=== PATIENT | female | born 1960 | race Caucasian/White ===

== ENCOUNTER 2019-10-29 09:43 | Emergency (ER) | payer OTHER, SELFPAY ==
[2019-10-29 09:50] VITALS: BP 139/81; PULSE 107; RESP 20; TEMP 37.1; O2SAT 94
--- NOTE | 2019-10-29 10:04 | ED.URI ---
HPI - URI/Sore Throat General Chief Complaint: Upper Respiratory Infection Stated Complaint: runny nose/cough/body aches Time Seen by Provider: 10/29/19 10:12 Source: patient and RN notes reviewed Mode of arrival: ambulatory Limitations: no limitations History of Present Illness HPI Narrative: A 59 y/o female smoker presents to the with 2 day worsening 2 wk history of URI symptoms. She states that she has been sick for 2-3 weeks but over the past couple days her symptoms have gotten more severe. Her son was tested today for influenza and type A positive. She reports a severe dry cough, rhinorrhea, nasal congestion, and body aches. She notes that she has not been sleeping well d/t her cough and that nothing has helped her symptoms. She also notes that her son who is here with her has been sick for the past couple days. She denies any fevers, edema, sore throat, ear aches, sputum changes, precordial chest pain, wheezes, calf pain/edema and any other medical complaints at this time. MD elicited complaint: other (multiple) Onset (ago): week(s) (2-3 but worse over the past couple days) Consistency: progressively worsening Relieving factors: nothing Context: sick contacts (son) Associated symptoms: rhinorrhea, nasal congestion, cough (dry) and other (body aches) Related Data Home Medications Medication Instructions Recorded Confirmed amlodipine 5 mg tablet 5 mg PO DAILY 10/03/19 10/29/19 escitalopram oxalate 10 mg tablet 10 mg PO DAILY 10/03/19 10/29/19 [id number] cap PO 10/29/19 [Vicks DayQuil Cold-Flu Relief] Allergies Allergy/AdvReac Type Severity Reaction Status Date / Time No Known Allergies Allergy Unknown Verified 10/29/19 09:58 Review of Systems Review of Systems: Narrative: General/Constitutional: No weight loss,fever. Reports body aches. Eyes: N0: Redness,discharge Ears/Nose/Throat: No: Epistaxis,ear discharge, ear ache, or sore throat. Reports rhinorrhea and nasal discharge. Respiratory: Denies: Hemoptysis, edema. Reports a dry cough. Gastrointestinal: No Vomiting, Bleeding-rectal Skin: No Lumps, eruption Neurologic: No Focal Weakness,Sz Hematologic: Denies: Petechiae/Purpura Psychiatric: No: Suicida ideationl All Other Systems: Reviewed and Negative PMFSH Past Medical History Medical History (Updated 10/29/19 @ 10:21 by Dl Olmedo MD) Anxiety Depression Encounter for long-term (current) use of other medications Essential hypertension History of tobacco use Hyperlipidemia Impaired glucose tolerance Osteoporosis Overweight (04/19/17) Personal history of malignant phylloides tumor of breast Port-A-Cath in place Vitamin D deficiency (03/30/19) Surgical History Surgical History (Updated 10/29/19 @ 10:06 by Alessandro Humphrey) Surgical history unknown Family History Family History Mother Patient's mother is in good health Father Patient's father is in good health Sibling Patient's sister is in good health Patient's brother is in good health Other Family history of malignant neoplasm of breast Family history of malignant neoplasm of breast in first degree relative Social History Social History (Updated 10/29/19 @ 10:18 by Alessandro Humphrey) Smoking packs per day: 0.5 Smoking cigarettes per day: 10.0 Smoking status: Current every day smoker Second hand tobacco smoke exposure: Yes Alcohol intake: current Comments PCP: Dr. Cee. Exam Narrative: Exam Narrative: General Appearance: Well appearing, Well nourished EYE: PERRLA, Conjunctiva clear Ears: Auditory canal normal, TM normal Nose: Rhinorrhea, Mucousal erythema Mouth/Throat: MM moist, Uvula midline, Pharyngeal erythema Neck: Supple, No adenopathy Respiratory: No respiratory distress, Breath sounds equal, Clear to auscultation Cardiovascular: RRR, No JVD Musculoskeletal: Non tender, Normal strength Skin: Warm, Dry Neurological: A&O x3, CN
== END 2019-10-29 10:22 | disposition home or self-care (01) ==
PROVIDERS: Emergency Provider Emergency Medicine; PCP Internal Medicine
DX: J11.1 Influenza due to unidentified influenza virus with other respiratory manifestations (principal); F41.9 Anxiety disorder, unspecified; F32.9 Major depressive disorder, single episode, unspecified; M81.0 Age-related osteoporosis without current pathological fracture; I10 Essential (primary) hypertension; E78.5 Hyperlipidemia, unspecified
CPT/HCPCS: 99213; G0463

== ENCOUNTER 2020-12-06 09:34 | Outpatient (CLI) | payer OTHER, SELFPAY ==
[2020-12-06 11:32] LABS: Alanine Aminotransferase 15 U/L (4-35); Alkaline Phosphatase 72 U/L (38-126); Anion Gap 2 mmol/L (8-16); Aspartate Amino Transferase 27 U/L (14-36); Bilirubin,Total 0.6 mg/dL (0.2-1.3); Blood Urea Nitrogen 9 mg/dL (7-17); Calcium 9.1 mg/dL (8.4-10.2); Carbon Dioxide 32 mmol/L (22-30); Chloride 105 mmol/L (98-107); Cholesterol 187 mg/dL (0-200); Estimated Glomerular Filt Rate > 60; Glucose 97 mg/dL (65-105); HDL Direct 85 mg/dL; Potassium 3.9 mmol/L (3.4-5.0); Sodium 139 mmol/L (137-145); Triglycerides 61 mg/dL (<150)
[2020-12-06 11:44] LABS: LDL Cholesterol Direct 85 mg/dL
[2020-12-06 12:50] LABS: Vitamin D 25 Hydroxy 16.9 ng/mL
== END 2020-12-06 09:35 | disposition home or self-care (01) ==
PROVIDERS: PCP Internal Medicine; Visit Provider Internal Medicine
DX: Z00.00 Encounter for general adult medical examination without abnormal findings (principal); E78.5 Hyperlipidemia, unspecified; E55.9 Vitamin D deficiency, unspecified
CPT/HCPCS: 36415; 80053; 80061; 82306

== ENCOUNTER 2020-12-09 14:35 | Outpatient (CLI) | payer OTHER, SELFPAY ==
--- NOTE | ~2020-12-09 | DEXA_ITS ---
Bone Density Report Name: Kasey Lopez Age: 60 Sex: Female Ethnicity: White Date of : 1960 Indication: postmenopausal; cancer; Referring Provider: CHANTE SIM Study: Bone densitometry was performed. Exam Date: December 09, 2020 Accession number: [id number] Bone Density: Region BMD T-score Z-score Classification AP Spine (L1-L4) 0.906 -1.3 0.0 Osteopenia Femoral Neck (Left) 0.610 -2.1 -1.0 Osteopenia Total Hip (Left) 0.858 -0.7 0.2 Normal Total Hip Bilateral Avg 0.887 -0.4 0.4 Normal Femoral Neck (Right) 0.575 -2.5 -1.3 Osteoporosis Total Hip (Right) 0.915 -0.2 0.6 Normal World Health Organization criteria for BMD impression classify patients as: Normal (T-score at or above -1.0), Osteopenia (T-score between -1.0 and -2.5), or Osteoporosis (T-score at or below -2.5). 10-year Fracture Risk: FRAX not reported because: Some T-score for Spine Total or Hip Total or Femoral Neck at or below -2.5 Previous Exams: Region Exam Age BMD T-score BMD Change BMD Change Date g/cm2 vs Baseline vs Previous AP Spine(L1-L4) 12/09/2020 60 0.906 -1.3 -0.035(-3.7%)* -0.035(-3.7%)* 08/17/2012 51 0.941 -1.0 Total Hip(Left) 12/09/2020 60 0.858 -0.7 -0.043(-4.8%)* -0.043(-4.8%)* 08/17/2012 51 0.901 -0.3 Total Hip(Right) 12/09/2020 60 0.915 -0.2 0.024(2.7%) 0.024(2.7%) 08/17/2012 51 0.891 -0.4 *Denotes significance at 95% confidence level, LSC for AP Spine = 0.022 g/cm2, LSC for Total Hip = 0.027 g/cm2 Clinical Information Provided by Patient: Smokes Has the following medical conditions: Cancer Patient maximum height was 62.5 Menopause Age: 51 No regular weight bearing exercise Does not regularly consume dairy products Drinks caffeinated beverages Onset of menses at age 15 Number of children 2 Impression: The patient has osteoporosis, based on the Right Femoral Neck T-score. The patient has risk factors, including: smoking. The BMD for the AP Spine(L1-L4) decreased, changing by -3.7% since the last DXA exam. The BMD for the Total Hip(Left) decreased, changing by -4.8% since the last DXA exam. Discussion: INCREASED RISK OF FRACTURE. BONE DENSITY IS UNDESIRABLY LOW AT ONE OR MORE SKELETAL SITES, CONSISTENT WITH POSTMENOPAUSAL OSTEOPOROSIS. This patient's lowest T-score meets the World Health Organization's (WHO) criteria for osteoporosis at one or more sites (T-score -2.5 or below). In untreated patients, the risk of osteoporotic fracture i
== END 2020-12-09 14:36 | disposition home or self-care (01) ==
PROVIDERS: PCP Internal Medicine; Visit Provider Internal Medicine
DX: M81.0 Age-related osteoporosis without current pathological fracture (principal); M85.89 Other specified disorders of bone density and structure, multiple sites
CPT/HCPCS: 77080

== ENCOUNTER 2021-02-27 07:30 | Outpatient (CLI) | payer OTHER, SELFPAY ==
--- NOTE | ~2021-02-27 | MM_ITS ---
EXAMINATION: MM screening corey BI w fabrice HISTORY: Screening mammogram, history of left breast cancer TECHNIQUE: Craniocaudal and mediolateral oblique 3-D tomosynthesis images were obtained and synthetic 2-D images were generated. CAD analysis was submitted and interpreted. COMPARISON: 10/02/2018, 12/29/2016, 03/22/2016 BREAST PARENCHYMAL COMPOSITION: There are scattered areas of fibroglandular density. FINDINGS: Stable lumpectomy changes are noted in the left breast. There is no evidence of suspicious mass, calcification, or architectural distortion to suggest malignancy in either breast. There has be en no suspicious interval change. IMPRESSION: 1. No mammographic evidence of malignancy. 2. Recommend routine screening mammography in one year. BI-RADS Category 2: Benign finding(s). Reviewed, dictated and finalized at location A.
== END 2021-02-27 07:31 | disposition home or self-care (01) ==
LOC: ANHIMG 07:33
PROVIDERS: PCP Internal Medicine; Visit Provider Internal Medicine
DX: Z12.31 Encounter for screening mammogram for malignant neoplasm of breast (principal)
CPT/HCPCS: 77063; 77067

== ENCOUNTER 2022-01-02 08:35 | Outpatient (CLI) | payer OTHER, SELFPAY ==
[2022-01-02 09:06] LABS: Hemoglobin A1C 4.9 % (<5.7)
[2022-01-02 09:07] LABS: Alanine Aminotransferase 25 U/L (4-35); Albumin Level 4.5 g/dL (3.5-5.1); Alkaline Phosphatase 66 U/L (38-126); Anion Gap 2 mmol/L (8-16); Aspartate Amino Transferase 38 U/L (14-36); Bilirubin,Total 0.7 mg/dL (0.2-1.3); Blood Urea Nitrogen 9 mg/dL (7-17); Carbon Dioxide 31 mmol/L (22-30); Chloride 104 mmol/L (98-107); Cholesterol 230 mg/dL (0-200); Estimated Glomerular Filt Rate > 60; Glucose 99 mg/dL (65-110); HDL Direct 96 mg/dL; Potassium 4.2 mmol/L (3.4-5.0); Sodium 137 mmol/L (137-145); Triglycerides 60 mg/dL (<150)
[2022-01-02 09:18] LABS: LDL Cholesterol Direct 99 mg/dL
[2022-01-02 09:33] LABS: Vitamin D 25 Hydroxy 43.4 ng/mL
== END 2022-01-02 08:36 | disposition home or self-care (01) ==
LOC: ANHLAB 08:39
PROVIDERS: PCP Internal Medicine; Visit Provider Nurse Practitioner
DX: E78.5 Hyperlipidemia, unspecified (principal); R73.02 Impaired glucose tolerance (oral); E55.9 Vitamin D deficiency, unspecified
CPT/HCPCS: 36415; 80053; 80061; 82306; 83036

== ENCOUNTER 2022-04-08 15:48 | Outpatient (CLI) | payer OTHER, SELFPAY ==
--- NOTE | ~2022-04-08 | MM_ITS ---
EXAMINATION: MM screening corey BI w fabrice HISTORY: Screening mammogram TECHNIQUE: Craniocaudal and mediolateral oblique 3-D tomosynthesis images were obtained and synthetic 2-D images were generated. CAD analysis was submitted and interpreted. COMPARISON: 02/27/2021, 10/02/2018 bilateral screening mammogram examinations BREAST PARENCHYMAL COMPOSITION: There are scattered areas of fibroglandular density. FINDINGS: Stable postoperative changes noted in the upper inner lateral left breast including 4 surgi paty clips. There is no evidence of suspicious mass, calcification, or architectural distortion to sug gest malignancy in either breast. There has been no suspicious interval change. IMPRESSION: 1. Status post left partial mastectomy for breast cancer. No mammographic evidence of malignancy. 2. Recommend routine screening mammography in one year. BI-RADS Category 2: Benign finding(s). Reviewed, dictated and finalized at location B. IMPRESSION: 1. Status post left partial mastectomy for breast cancer. No mammographic evide nce of malignancy. 2. Recommend routine screening mammography in one year. BI-RADS Category 2: Benign finding(s).
== END 2022-04-08 15:49 | disposition home or self-care (01) ==
LOC: ANHIMG 15:49
PROVIDERS: PCP Internal Medicine; Visit Provider Internal Medicine
DX: Z12.31 Encounter for screening mammogram for malignant neoplasm of breast (principal)
CPT/HCPCS: 77063; 77067

== ENCOUNTER 2023-01-03 06:00 | Outpatient (CLI) | payer OTHER, SELFPAY ==
[2023-01-03 08:20] LABS: Cholesterol 245 mg/dL (0-200); Triglycerides 134 mg/dL (<150)
[2023-01-03 08:29] LABS: LDL Cholesterol Direct 100 mg/dL
[2023-01-03 09:13] LABS: HDL Direct 117 mg/dL
== END 2023-01-03 06:01 | disposition home or self-care (01) ==
PROVIDERS: Nurse Practitioner; PCP Family Medicine; Visit Provider Family Medicine
DX: E78.5 Hyperlipidemia, unspecified (principal)
CPT/HCPCS: 36415; 80061

== ENCOUNTER 2023-12-28 07:13 | Outpatient (CLI) | payer OTHER, SELFPAY ==
[2023-12-28 07:51] LABS: Basophils Absolute Auto 0.1 K/mm3 (0.0-0.1); Basophils Percent Auto 0.8 % (0.2-1.2); Eosinophils Absolute Auto 0.1 K/mm3 (0-0.3); Eosinophils Percent Auto 1.4 % (0-4.4); Hematocrit 43.2 % (37.0-47.0); Hemoglobin 14.3 g/dL (12.0-15.0); Immature Granulocyte Absolute 0.03 K/mm3 (0.00-0.031); Immature Granulocyte Percent A 0.5 % (0-0.5); Lymphocytes Absolute Auto 1.62 K/mm3 (0.9-3.2); Lymphocytes Percent Auto 25.1 % (18.3-44.2); Mean Corpuscular HGB Conc 33.1 g/dl (32-36); Mean Corpuscular Hemoglobin 33.7 pg (26-34); Mean Corpuscular Volume 101.9 fl (80-100); Monocytes Absolute Auto 0.6 K/mm3 (0.1-0.6); Monocytes Percent Auto 8.7 % (2.6-8.5); Neutrophils Absolute Auto 4.1 K/mm3 (1.3-6.7); Neutrophils Percent Auto 63.5 % (45.5-73.1); Platelet Count Result 405 k/mm3 (150-375); Red Blood Count 4.24 M/mm3 (4.2-5.4); Red Cell Distribution Width 13.3 % (11.5-14.5); White Blood Count 6.5 K/mm3 (4.5-10.0)
[2023-12-28 07:58] LABS: Alanine Aminotransferase 34 U/L (6-35); Albumin Level 4.6 g/dL (3.5-5.1); Alkaline Phosphatase 66 U/L (38-126); Anion Gap 8 mmol/L (4-12); Aspartate Amino Transferase 35 U/L (14-36); Bilirubin,Total 0.5 mg/dL (0.2-1.3); Blood Urea Nitrogen 12 mg/dL (7-17); Calcium 10.2 mg/dL (8.4-10.2); Carbon Dioxide 27 mmol/L (22-30); Chloride 105 mmol/L (98-107); Cholesterol 229 mg/dL (0-200); Estimated Glomerular Filt Rate > 60; Glucose 92 mg/dL (65-110); HDL Direct 106 mg/dL; Potassium 4.3 mmol/L (3.4-5.0); Sodium 140 mmol/L (137-145); Triglycerides 242 mg/dL (<150)
[2023-12-28 08:09] LABS: LDL Cholesterol Direct 92 mg/dL
[2023-12-28 08:49] LABS: Vitamin D 25 Hydroxy 61.9 ng/mL
[2023-12-28 09:03] LABS: Folic Acid > 20.0 ng/mL (2.76->20)
== END 2023-12-28 07:14 | disposition home or self-care (01) ==
PROVIDERS: PCP Family Medicine; Visit Provider Nurse Practitioner Family
DX: E78.5 Hyperlipidemia, unspecified (principal); E55.9 Vitamin D deficiency, unspecified; F41.9 Anxiety disorder, unspecified; G47.00 Insomnia, unspecified; I10 Essential (primary) hypertension; M81.0 Age-related osteoporosis without current pathological fracture; R73.02 Impaired glucose tolerance (oral); Z87.891 Personal history of nicotine dependence
CPT/HCPCS: 36415; 80053; 80061; 82306; 82607; 82746; 83036; 84439; 84443; 85025

== ENCOUNTER 2024-03-05 07:53 | Outpatient (CLI) | payer OTHER, SELFPAY ==
--- NOTE | ~2024-03-05 | MM_ITS ---
EXAMINATION: MM screening corey BI w fabrice HISTORY: Screening mammogram TECHNIQUE: Craniocaudal and mediolateral oblique 3-D tomosynthesis images were obtained and synthetic 2-D images were generated. CAD analysis was submitted and interpreted. COMPARISON: 04/08/2022, 02/27/2021, 10/02/2018 BREAST PARENCHYMAL COMPOSITION:Not Dense. There are scattered areas of fibroglandular density. FINDINGS: Stable postoperative change and distortion in the left breast. No suspicious mass, calcific ation, or new architectural distortion are identified in either breast to suggest malignancy. There h as been no suspicious interval change. IMPRESSION: No mammographic evidence of malignancy. Recommend routine screening mammography in one year. BI-RADS Category 2: Benign finding(s). Reviewed, dictated and finalized at [facility] [place].
--- NOTE | ~2024-03-05 | DEXA_ITS ---
Bone Density Report Name: HALINA HILLMAN Age: 63 Sex: Female Ethnicity: White Date of : 1960 Indication: postmenopausal; screening for osteoporosis; height loss; cancer; Referring Provider: WILLY TESFAYE Study: Bone densitometry was performed. Exam Date: March 05, 2024 Accession number: [id number] Bone Density: Region BMD T-score Z-score Classification AP Spine(L1-L4) 0.924 -1.1 0.4 Osteopenia Femoral Neck (Left) 0.680 -1.5 -0.2 Osteopenia Total Hip (Left) 0.925 -0.1 0.9 Normal Femoral Neck (Right) 0.619 -2.1 -0.7 Osteopenia Total Hip (Right) 0.932 -0.1 0.9 Normal Total Hip Mean 0.929 -0.1 0.9 Normal World Health Organization criteria for BMD impression classify patients as: Normal (T-score at or above -1.0), Osteopenia (T-score between -1.0 and -2.5), or Osteoporosis (T-score at or below -2.5). 10-year Fracture Risk(1): Major Osteoporotic Fracture 10% Hip Fracture 2.2% Reported Risk Factors: [place] (), Neck BMD=0.619, BMI=29.7, smoking (1) FRAX(R) Version 3.08. Fracture probability calculated for an untreated patient. Fracture probability may be lower if the patient has received treatment. Clinical Information Provided by Patient: Smokes Has used the following medications: Vitamin D, Calcium Has the following medical conditions: Cancer Patient maximum height was 62.5 Menopause Age: 51 No regular weight bearing exercise Drinks caffeinated beverages Onset of menses at age 16 Number of children 2 Impression: The patient has low bone mass, based on the Right Femoral Neck T-score. The patient has an estimated ten-year risk of hip fracture of 2.2% and an estimated ten-year risk of major fracture of 10%, based on the WHO FRAX algorithm. The patient has risk factors, including: smoking. Discussion: BONE DENSITY IS LOW AT ONE OR MORE SKELETAL SITES. This patient's lowest T-score is low at one or more skeletal sites. It meets the World Health Organization's (WHO) criteria for ?low bone mass? (T-score between -1.0 and -2.5). The patient's 10-year risk of fracture as calculated by FRAX is less than the threshold where pharmacological therapy is recommended by the National Osteoporosis Foundation (NOF). However, all treatment decisions require clinical judgment and consideration of individual patient factors, including patient preferences, comorbidities, previous drug use, risk factors not captured in the FRAX model (e.g., frailty, falls, vitamin D deficiency, increased bone turnover, interval significant decline in bone density) and possible under or overestimation of fracture risk by FRAX. The patient should follow a healthful lifestyle (good nutrition with adequate calcium and vitamin D, and appropriate weight-bearing exercise). Follow-Up: Consider repeating this
== END 2024-03-05 07:54 | disposition home or self-care (01) ==
PROVIDERS: PCP Family Medicine; Visit Provider Nurse Practitioner Family
DX: Z12.31 Encounter for screening mammogram for malignant neoplasm of breast (principal); M85.89 Other specified disorders of bone density and structure, multiple sites; Z85.3 Personal history of malignant neoplasm of breast; Z13.820 Encounter for screening for osteoporosis
CPT/HCPCS: 77063; 77067; 77080

== ENCOUNTER 2024-05-29 13:37 | Emergency (ER) | payer OTHER, SELFPAY ==
[2024-05-29 13:51] VITALS: BP 135/88; PULSE 101; RESP 16; TEMP 36.3; O2SAT 98
[2024-05-29 14:07] LABS: EDCOVIDSCREEN Positive (Negative); EDINFLUASCREEN Negative (Negative); EDINFLUBSCREEN Negative (Negative)
--- NOTE | 2024-05-29 20:48 | ED.URI ---
HPI - URI/Sore Throat General Chief Complaint: Upper Respiratory Infection Stated Complaint: RUNNY NOSE/SORE THROAT/COUGH Time Seen by Provider: 05/29/24 13:58 Source: patient, RN notes reviewed and old records reviewed Mode of arrival: ambulatory Limitations: no limitations History of Present Illness HPI Narrative: 63-year-old female to [facility] with complaint of runny nose, body aches, sore throat, sneezing, fatigue since Tuesday. Patient reports treating at home with NyQuil and Tylenol with little relief. Patient denies fever, shortness of breath, chest pain, difficulty swallowing, cough, ear pain, GI complaints. Patient able tolerate fluids by mouth. Patient resting uncomfortably, appears acutely ill in exam room. Respirations even and nonlabored. Patient in no acute distress. Related Data Home Medications Medication Instructions Recorded Confirmed multivitamin 1 tablet PO DAILY 05/18/23 05/18/23 Allergies Allergy/AdvReac Type Severity Reaction Status Date / Time No Known Allergies Allergy Unknown Verified 11/29/23 07:46 Review of Systems Review of Systems: All systems reviewed & are unremarkable except as noted in HPI and below Constitutional: Constitutional: Reports as per HPI, Reports body ache(s), Reports fatigue and Reports lethargy Eyes: Eyes: Reports no additional eye complaints ENT: Reports as per HPI, Reports nasal discharge, Reports sore throat and Reports other ( Sneezing) Cardiovascular: Cardiovascular: Reports no additional cardiovascular complaints, Denies chest pain and Denies dyspnea Respiratory: Respiratory: Reports no additional respiratory complaints, Denies cough and Denies dyspnea Musculoskeletal: Musculoskeletal: Reports no additional musculoskeletal complaints Neurologic: Reports system reviewed and no additional complaints, except as documented Psychiatric: Psychiatric: Reports no additional psychiatric complaints [facility] Past Medical History Medical History Anxiety Depression Encounter for long-term (current) use of other medications Essential hypertension History of tobacco use Hyperlipidemia Impaired glucose tolerance Osteoporosis Overweight (04/19/17) Personal history of malignant phylloides tumor of breast Port-A-Cath in place Vitamin D deficiency (03/30/19) Surgical History Surgical History History of removal of Port-a-Cath History of subtotal mastectomy of left breast Surgical history unknown Family History Family History Mother Patient's mother is in good health Father Patient's father is in good health Sibling Patient's sister is in good health Patient's brother is in good health Other Family history of malignant neoplasm of breast Family history of malignant neoplasm of breast in first degree relative Social History Social History Smoking packs per day: 1 Smoking cigarettes per day: 20.0 Years smoked: 30 Smoking pack-years: 30.00 Smoking status: Former smoker Tobacco type: cigarettes Second hand tobacco smoke exposure: Yes Smoking end date: 07/27/22 Alcohol intake: current Drinks per week: 4 Substance use: former Substance use type: marijuana Lack of Transportation: No Lack of Food: Sometimes True Current Housing: I Have Housing Concerned About Future Housing: No Difficulty Paying Gas/Electric Bills: No Difficulty Paying for Meds: No Currently Unemployed: No Education: Master's Degree or Higher Difficulty w/ Childcare or Family Care: No Comments At the time of my signature, I reviewed and agree with the nursing past medical, surgical, social, and family history. There is no relevant family history pertinent to the patient complaint. Exam Const: General
== END 2024-05-29 14:16 | disposition home or self-care (01) ==
PROVIDERS: Emergency Provider Nurse Practitioner Family; PCP Nurse Practitioner Family
DX: U07.1 COVID-19 (principal); F41.8 Other specified anxiety disorders; I10 Essential (primary) hypertension; E78.5 Hyperlipidemia, unspecified; M81.0 Age-related osteoporosis without current pathological fracture; E55.9 Vitamin D deficiency, unspecified; Z87.891 Personal history of nicotine dependence
CPT/HCPCS: 87635; 87804; 99213; G0463

== ENCOUNTER 2025-02-12 09:22 | Outpatient (CLI) | payer OTHER, SELFPAY ==
--- OUTSIDE RECORDS SUMMARY | 2025-02-12 09:39 | XMS_ITS | Encounter Summary ---
Author Organization [facility] Address [address] [place] [address] Care Team Providers Care Inside Meter Tester Name Role Phone Linda Stone MD Primary Care Provider [phone] Encounter Details Date Type Department Care Team (Latest Contact Info) Description 04/07/2005 Outpatient Historical [facility] OTNY Morel, MD Rg [id number] [place] [address] GEN CONVUL EPI W/O MENTN INTRACT (CMS/HCC) (Primary Dx) Social History Tobacco Use Types Packs/Day Years Used Date Smoking Tobacco: Never Assessed Comments Unknown Sex and Gender Information Value Date Recorded Sex Assigned at Not on file Legal Sex 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[employer] Gender Identity Not on file Sexual Orientation Not on file documented as of this encounter Plan of Treatment Not on file documented as of this encounter Procedures Procedure Name Priority Date/Time Associated Diagnosis Comments CBC WITH DIFFERENTIAL Routine 04/07/2005 10:22 AM CDT CBC WITH DIFFERENTIAL Routine 04/07/2005 10:22 AM CDT PHENYTOIN LEVEL, TOTAL Routine 5 10:22 AM CDT COMPREHENSIVE METABOLIC PANEL Routine 04/07/2005 10:22 AM CDT documented in this encounter Results * (ABNORMAL) CBC WITH DIFFERENTIAL (04/07/2005 10:22 AM CDT) NEUTROPHILS 71(H) 45 - 70 % INTERFAC E SYSTEM LYMPHOCYTES 20 16 - 45 % INTERFAC E SYSTEM MONOCYTES 7 3 - 13 % INTERFACE SYSTEM EOSINOPHILS 1 0 - 7 % INTERFAC E SYSTEM BASOPHILS 0 0 - 2 % INTERFACE SYSTEM NEUTROPHIL ABSOLUTE 7.94(H) 1.90 - 7.00 K/uL INTERFACE SYSTEM LYMPHOCYTE ABSOLUTE 2.24 0.70 - 4.50 K/uL INTERFACE SYSTEM MONOCYTE ABSOLUTE 0.80 0.10 - 1.30 K/uL INTERFACE SYSTEM EOSINOPHIL ABSOLUTE 0.15 0.00 - 0.70 K/uL INTERFACE SYSTEM BASOPHILS ABSOLUTE 0.02 0.00 - 0.20 K/uL INTERFACE SYSTEM 04/07/2005 10:2 2 AM CDT Rg Morel MD HEMATOLOGY ORDERABLES Final Resu lt Performing Organization Address City/[facility] Co de Phone Number INTERFACE SYSTEM Refer to clinic/hospital department * (ABNORMAL) CBC WITH DIFFERENTIAL (04/07/2005 10:22 AM CDT) WBC 11.2(H) 4.0 - 9.8 K/uL INTERFACE SYSTEM RBC 4.59 3.90 - 4.90 M/uL INTERFACE SYSTEM HEMOGLOBIN 15.3(H) 11.8 - 14.8 g/dL INTERFACE SYSTEM HEMATOCRIT 45.8(H) 35.5 - 44.0 % INTERFACE SYSTEM MCV 99.8(H) 82.0 - 99.0 fL INTERFACE SYSTEM MCH 33.3(H) 27.2 - 32.6 pg INTERFACE SYSTEM MCHC 33.4 31.5 - 35.5 % INTERFACE SYSTEM RDW 13.2 11.5 - 14.5 % INTERFACE SYSTEM RDW-STDEV 48.7 37.1 - 48.7 fL INTERFACE SYSTEM PLATELETS 365(H) 140 - 350 K/uL INTERFACE SYSTEM MPV 9.5 9.3 - 12.4 fL INTERFACE SYSTEM 04/07/2005 10:2 2 AM CDT Rg Morel MD HEMATOLOGY ORDERABLES Final Resu lt INTERFACE SYSTEM Refer to clinic/hospital department * (ABNORMAL) PHENYTOIN LEVEL, TOTAL (04/07/2005 10:22 AM CDT) PHENYTOIN TOTAL 22.6(H) 10.0 - 20.0 ug/mL INTERFACE SYSTEM Comment: Phenytoin Toxic Level >= 30 ug/mL Phenytoin Severely Toxic Level >= 40 ug/mL 04/07/2005 10:2 2 AM CDT Rg Morel MD CHEMISTRY ORDERABLES Final Resul t Performing Organization Address City/State/[facility] Co de Phone Number INTERFACE SYSTEM Refer to clinic/hospital department * (ABNORMAL) COMPREHENSIVE METABOLIC PANEL (04/07/2005 10:22 AM CDT) GLUCOSE 108 65 - 109 mg/dL INTERFACE SYSTEM CREATININE 0.7 0.4 - 1.2 mg/dL INTERFACE SYSTEM CALCIUM 9.3 8.6 - 10.2 mg/dL INTERFACE SYSTEM AST 69(H) 12 - 32 U/L INTERFACE SYSTEM ALKALINE PHOSPHATASE 144(H) 35 - 104 U/L INTERFACE SYSTEM BUN 7 6 - 20 mg/dL INTERFACE SYSTEM BILIRUBIN TOTAL 0.4 0.2 - 1.0 mg/dL INTERFACE SYSTEM ALBUMIN 4.3 3.4 - 4.8 g/dL INTERFACE SYSTEM TOTAL PROTEIN 6.7 6.3 - 8.6 g/dL INTERFACE SYSTEM ALT 105(H) 0 - 31 U/L INTERFACE SYSTEM SODIUM 139 135 - 145 mmol/L INTERFACE SYSTEM POTASSIUM 3.9 3.5 - 4.9 mmol/L INTERFACE SYSTEM CHLORIDE 104 96 - 108 mmol/L INTERFACE SYSTEM CO2 25 22 - 30 mmol/L INTERFACE SYSTEM 04/07/2005 10:2 2 AM CDT us Rg Morel MD CHEMISTRY ORDERABLES Final Resul t Performing Organization Address City/State/[facility] Co de Phone Number INTERFACE SYSTEM Refer to clinic/hospital department documented in this encounter Visit Diagnoses Diagnosis 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
--- OUTSIDE RECORDS SUMMARY | 2025-02-12 09:39 | XMS_ITS | Encounter Summary ---
Author Organization [facility] Address [address] [place] [address] Care Team Providers Care Burglar Alarm Inspector Name Role Phone Linda Stone MD Primary Care Provider [phone] Encounter Details Date Type Department Care Team (Late st Contact Info) Description 02/24/2004 Outpatient Historical [facility] - [facility] [address] [place] [address] Giovanni Silva MD [address] [place] [address] Social History Tobacco Use Types Packs/Day Years Used Date Smoking Tobacco: Never Assessed Comments Unknown Sex and Gender Information Value Date Recorded Sex Assigned at Not on file 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
--- OUTSIDE RECORDS SUMMARY | 2025-02-12 09:39 | XMS_ITS | Encounter Summary ---
Author Organization [facility] Address [address] [place] [address] Care Team Providers Care Crt Name Role Phone Linda Stone MD Primary Care Provider [phone] Encounter Details Date Type Department Care Team (Late st Contact Info) Description 2006 Orders Only [facility] Primary Care - [address] [place] [address] Giovanni Silva MD [address] [facility] [place] [address] [place] [address] Social History Tobacco Use Types Packs/Day Years Used Date Smoking Tobacco: Never Assessed Comments Unknown Sex and Gender Information Value Date Recorded Sex Assigned at Not on file Legal Sex Female 5:19 AM DRAWING IN HAND Gender Identity Not on file Sexual Orientation Not on file documented as of this encounter Progress Notes * Giovanni Silva MD - 02/06/2008 2:49 PM CDT BLOOD PRESSURE: 120/80 Left Arm Sitting TEMPERATURE: 98.4??f Oral WEIGHT: 118lbs NURSE NAME: Gabriela Grier A ALLERGIES: No known drug allergies. MEDICATIONS: Medications may have changed. Dr to review medications. CHIEF COMPLAINT Here for follow up evaluation. HISTORY: HISTORY: 787.91-DIARRHEA The patient's diarrhea symptoms remain stable. The patient denies any significant abdominal pain, nausea, vomiting, indigestion or bloating. PHYSICAL EXAMINATION: CONSTITUTIONAL: GENERAL APPEARANCE: Healthy appearing patient in no distress. NECK/THYROID: Trachea midline. No thyroid enlargement, tenderness, or mass. No supraclavicular or cervical adenopathy. RESPIRATORY: Clear to auscultation and percussion. Normal respiratory effort. CARDIOVASCULAR: CARDIAC: Regular rhythm. No murmurs, rubs, or gallops. ARTERIAL: No aortic bruits. EDEMA/VARICOSITIES OF EXTREMITIES: No edema or varicosities. GASTROINTESTINAL: ABDOMEN: Soft, non-tender, without masses. Bowel sounds active. LIVER/SPLEEN/KIDNEY: No hepatosplenomegaly, tenderness or nodularity. Kidneys not palpable. ASSESSMENT/PLAN: 311-DEPRESSION ASSESSMENT: The patient's depression remains stable. Will not change medication, continue to monitor for complications. MEDICATIONS: CYMBALTA ORAL CAPSULE ENTERIC COATED 60 MG, 1 tab po qday, 90 Dispensed, 3 Fills, status: CONTINUED, 2006. FOLBIC ORAL TABLET 2.5-25-2 MG, 1 tab po qday, 90 Dispensed, 3 Fills, status: NEW PRESCRIPTION, 2006. 787.91-DIARRHEA ASSESSMENT: The patient's diarrhea continues to remain stable. Will not change medication, continueto monitor for complications. Electronically Signed by: Giovanni Silva MD on Thursday, 2006 documented in this encounter Plan of Treatment Not on file documented as of this encounter Visit Diagnoses Not on filedocumented in this encounter Care Teams Crt Relationship Specialty Start Date End Date Linda Stone MD [address] [facility] [address] [place] [address] PCP - General Internal Medicine 04/02/11 documented as of this encounter
--- OUTSIDE RECORDS SUMMARY | 2025-02-12 09:39 | XMS_ITS | Encounter Summary ---
Author Organization [facility] Address [address] [place] [address] Care Team Providers Care Puppy Walker Name Role Phone Linda Stone MD Primary Care Provider [phone] Encounter Details Date Type Department Care Team (Latest Contact Info) Description 06/15/2007 Outpatient Historical HIS [facility] TONY Morel, MD Rg [address] [facility] [address] [place] [address] Grand Mal, not Intractabl ([facility]) (Primary Dx) Social History Tobacco Use Types Packs/Day Years Used Date Smoking Tobacco: Never Assessed Comments Unknown Sex and Gender Information Value Date Recorded Sex Assigned at Not on file Legal Sex Female 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 Gender Identity Not on file Sexual Orientation Not on file documented as of this encounter Plan of Treatment Not on file documented as of this encounter Procedures Procedure Name Priority Date/Time Associated Diagnosis Comments PROLACTIN Routine 06/15/2007 1:28 PM CDT LIPID PANEL Routine 06/15/2007 1:28 PM CDT COMPREHENSIVE METABOLIC PANEL Routine 06/15/2007 1:28 PM CDT documented in this encounter Results * PROLACTIN (06/15/2007 1:28 PM CDT) PROLACTIN 11.04 4.79 - 23.30 ng/mL INTERFACE SYSTEM Comment: Female: Non- Reference Range 18 years - Adult = 4.79 - 23.30 ng/mL No Reference Range Established for patients less than 18 years of age..b r.br 06/15/2007 1:28 PM CDT Rg Morel MD CHEMISTRY ORDERABLES Edited Performing Organization Address [facility] Phone Number INTERFACE SYSTEM Refer to clinic/hospital department * (ABNORMAL) LIPID PANEL (06/15/2007 1:28 PM CDT) CHOLESTEROL 227(H) 100 - 199 mg/dL INTERFACE SYSTEM TRIGLYCERIDE 154(H) 10 - 149 mg/dL INTERFACE SYSTEM HDL 116(H) 40 - 59 mg/dL INTERFACE SYSTEM CHOL/HDL RATIO 2.0 2.0 - 5.0 INTER FACE SYSTEM LDL CALCULATED 80 <=99 mg/dL INTERFACE SYSTEM LIPID PANEL COMMENT See Below INTERFACE SYSTEM Comment: The adult ATP and pediatric NCEP classifications for lipids are available on the [facility] Intranet at: [email or web address] Select: Lab Policies and Procedures,Current Select: Lipid Panel Interpretation 06/15/2007 1:28 PM CDT Rg Morel MD CHEMISTRY ORDERABLES Edited Performing Organization Address [facility] Phone Number INTERFACE SYSTEM Refer to clinic/hospital department * (ABNORMAL) COMPREHENSIVE METABOLIC PANEL (06/15/2007 1:28 PM CDT) GLUCOSE 112(H) 65 - 99 mg/dL INTERFACE SYSTEM CREATININE 0.74 0.51 - 0.95 mg/dL INTERFACE SYSTEM CALCIUM 8.8 8.4 - 10.2 mg/dL INTERFACE SYSTEM ALKALINE PHOSPHATASE 70 35 - 104 U/L INTERFACE SYSTEM AST 40(H) 12 - 32 U/L INTERFACE SYSTEM ALT 38(H) 0 - 31 U/L INTERFACE SYSTEM TOTAL PROTEIN 6.4 6.3 - 8.6 g/dL INTERFACE SYSTEM ALBUMIN 4.3 3.4 - 4.8 g/dL INTERFACE SYSTEM BILIRUBIN TOTAL 0.2 0.2 - 1.0 mg/dL INTERFACE SYSTEM BUN 8 6 - 20 mg/dL INTERFACE SYSTEM SODIUM 136 135 - 145 mmol/L INTERFACE SYSTEM POTASSIUM 3.7 3.5 - 4.9 mmol/L INTERFACE SYSTEM CHLORIDE 102 96 - 108 mmol/L INTERFACE SYSTEM CO2 22 22 - 30 mmol/L INTERFACE SYSTEM GFR, >60 >=60 mL/min/1. 7 sq meter INTERFACE SYSTEM GFR >60 >=60 mL/min/1. 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
--- OUTSIDE RECORDS SUMMARY | 2025-02-12 09:39 | XMS_ITS | Encounter Summary ---
Author Organization [email or web address] Address 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
--- OUTSIDE RECORDS SUMMARY | 2025-02-12 09:39 | XMS_ITS | Encounter Summary ---
Author Organization [facility] Address [address] [place] [address] Care Team Providers Care Violin Tutor Name Role Phone Linda Stone MD Primary Care Provider [phone] Encounter Details Date Type Department Care Team (Late st Contact Info) Description 04/07/2005 Outpatient Historical Division of Neurology [address] [address] Rg Morel MD [address] [place] [address] Social History Tobacco Use Types Packs/Day Years Used Date Smoking Tobacco: Never Assessed Comments Unknown Sex and Gender Information Value Date Recorded Sex Assigned at Not on file Legal Sex Female 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
--- OUTSIDE RECORDS SUMMARY | 2025-02-12 09:39 | XMS_ITS | Encounter Summary ---
Author Organization [facility] Address [address] [place] [address] Care Team Providers Care Frame Pulley Mortising Machine Operator Name Role Phone Linda Stone MD Primary Care Provider [phone] Encounter Details Date Type Department Care Team (Late st Contact Info) Description 10/30/2003 Outpatient Historical [facility] Primary Care - [facility] [address] [facility] [address] [place] [address] Brayden Muñoz Social History Tobacco Use Types Packs/Day Years Used Date Smoking Tobacco: Never Assessed Comments Unknown Sex and Gender Information Value Date Recorded Sex Assigned at Not on file Legal Sex Female 5:19 AM CAREER DEVELOPMENT COUNSELOR Gender Identity Not on file Sexual Orientation Not on file documented as of this encounter Plan of Treatment Not on file documented as of this encounter Visit Diagnoses Not on filedocumented in this encounter Care Teams Frame Pulley Mortising Machine Operator Relationship Specialty Start Date End Date Linda Stone MD [address] [facility] [address] [place] [address] PCP - General Internal Medicine 04/02/11 documented as of this encounter
--- OUTSIDE RECORDS SUMMARY | 2025-02-12 09:39 | XMS_ITS | Encounter Summary ---
Author Organization [facility] Address [address] [place] [address] Care Team Providers Care Cadet Deck Name Role Phone Linda Stone MD Primary Care Provider [phone] Encounter Details Date Type Department Care Team (Late st Contact Info) Description 05/04/2005 Outpatient Historical [facility] Support Services [facility] [address] [place] [address] [place] [address] Jonah Floyd MD [address] [place] [address] Social History Tobacco Use Types Packs/Day Years Used Date Smoking Tobacco: Never Assessed Comments Unknown Sex and Gender Information Value Date Recorded Sex Assigned at Not on file Legal Sex Female 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
--- OUTSIDE RECORDS SUMMARY | 2025-02-12 09:39 | XMS_ITS | Encounter Summary ---
Author Organization [facility] Address [address] [place] [address] Care Team Providers Care Used Car Manager Name Role Phone Linda Stone MD Primary Care Provider [phone] Encounter Details Date Type Department Care Team (Late st Contact Info) Description 10/04/2005 Outpatient Historical Division of Neurology [address] [address] Rg Morel MD [address] [place] [address] Social History Tobacco Use Types Packs/Day Years Used Date Smoking Tobacco: Never Assessed Comments Unknown Sex and Gender Information Value Date Recorded Sex Assigned at Not on file Legal Sex Female 5:19 AM PLATE GAUGER Gender Identity Not on file Sexual Orientation Not on file documented as of this encounter Plan of Treatment Not on file documented as of this encounter Visit Diagnoses Not on filedocumented in this encounter Care Teams Used Car Manager Relationship Specialty Start Date End Date Linda Stone MD [address] [place] [address] PCP - General Internal Medicine 04/02/11 documented as of this encounter
--- OUTSIDE RECORDS SUMMARY | 2025-02-12 09:39 | XMS_ITS | Encounter Summary ---
Author Organization [facility] Address [address] [place] [address] Care Team Providers Care Inventory Control Supervisor Name Role Phone Linda Stone MD Primary Care Provider [phone] Encounter Details Date Type Department Care Team (Late st Contact Info) Description 05/30/2003 Outpatient Historical [facility] Primary Care - [facility] [address] [facility] [address] [place] [address] Brayden Muñoz Social History Tobacco Use Types Packs/Day Years Used Date Smoking Tobacco: Never Assessed Comments Unknown Sex and Gender Information Value Date Recorded Sex Assigned at Not on file Legal Sex Female 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
--- OUTSIDE RECORDS SUMMARY | 2025-02-12 09:39 | XMS_ITS | Encounter Summary ---
Author Organization [facility] Address [address] [place] [address] Care Team Providers Care Workers Compensation Attorney Name Role Phone Linda Stone MD Primary Care Provider [phone] Encounter Details Date Type Department Care Team (Late st Contact Info) Description 08/26/2003 Outpatient Historical [facility] Primary Care - [facility] [address] [facility] [address] [place] [address] Brayden Muñoz Social History Tobacco Use Types Packs/Day Years Used Date Smoking Tobacco: Never Assessed Comments Unknown Sex and Gender Information Value Date Recorded Sex Assigned at Not on file 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
--- OUTSIDE RECORDS SUMMARY | 2025-02-12 09:39 | XMS_ITS | Encounter Summary ---
Author Organization [facility] Address 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
--- OUTSIDE RECORDS SUMMARY | 2025-02-12 09:39 | XMS_ITS | Encounter Summary ---
Author Organization [facility] Address [address] [place] [address] Care Team Providers Care Mineralogy Teacher Name Role Phone Linda Stone MD Primary Care Provider [phone] Encounter Details Date Type Department Care Team (Late st Contact Info) Description 08/24/2004 Outpatient Historical [facility] Primary Care - [facility] [address] [place] [address] Giovanni Silva MD [address] [facility] [address] [place], [place] [address] Social History Tobacco Use Types Packs/Day Years Used Date Smoking Tobacco: Never Assessed Comments Unknown Sex and Gender Information Value Date Recorded Sex Assigned at Not on file Legal Sex Female 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
--- OUTSIDE RECORDS SUMMARY | 2025-02-12 09:39 | XMS_ITS | Encounter Summary ---
Author Organization [facility] Address [address] [place] [address] Care Team Providers Care Electronics Test Engineer Name Role Phone Linda Stone MD Primary Care Provider [phone] Encounter Details Date Type Department Care Team (Late st Contact Info) Description 03/10/2005 Outpatient Historical [facility] Primary Care - [facility] [address] [facility] [address] [place] [address] Giovanni Silva MD [address] [facility] [address] [address] [place] [address] Social History Tobacco Use Types Packs/Day Years Used Date Smoking Tobacco: Never Assessed Comments Unknown Sex and Gender Information Value Date Recorded Sex Assigned at Not on file Legal Sex Female 5:19 AM NIGHT CLUB MANAGER Gender Identity Not on file Sexual Orientation Not on file documented as of this encounter Plan of Treatment Not on file documented as of this encounter Visit Diagnoses Not on filedocumented in this encounter Care Teams Electronics Test Engineer Relationship Specialty Start Date End Date Linda Stone MD [address] [facility] [address] [place] [address] PCP - General Internal Medicine 04/02/11 documented as of this encounter
--- OUTSIDE RECORDS SUMMARY | 2025-02-12 09:39 | XMS_ITS | Encounter Summary ---
Author Organization [facility] Address [address] [place] [address] Care Team Providers Care Brazer Electronic Name Role Phone Linda Stone MD Primary Care Provider [phone] Encounter Details Date Type Department Care Team (Latest Contact Info) Description 06/28/2005 Outpatient Historical [facility] TONY Morel, MD Rg [address] [place] [address] GEN CONVUL EPI W/O MENTN INTRACT ([facility]) (Primary Dx) Social History Tobacco Use Types Packs/Day Years Used Date Smoking Tobacco: Never Assessed Comments Unknown Sex and Gender Information Value Date Recorded Sex Assigned at Not on file Legal Sex Female 5:19 AM CABLE RIGGER Gender Identity Not on file Sexual Orientation Not on file documented as of this encounter Plan of Treatment Not on file documented as of this encounter Procedures Procedure Name Priority Date/Time Associated Diagnosis Comments METHYLMALONIC ACID Routine 06/28/2005 9: 25 AM CDT HOMOCYSTEINE NUTRITIONAL Routine 06/28/2005 9:25 AM CDT VITAMIN B1 LEVEL Routine 06/28/2005 9:25 AM CDT FOLATE RBC AND HEMATOCRIT Routine 06/28/2005 9:25 AM CDT VITAMIN B12 LEVEL Routine 06/28/2005 9:2 5 AM CDT PHENYTOIN LEVEL, TOTAL Routine 5 9:25 AM CDT LIPID PANEL Routine 06/28/2005 9:25 AM CDT documented in this encounter Results * METHYLMALONIC ACID (06/28/2005 9:25 AM CDT) METHYLMALONIC ACID 127 nmol/L I NTERFACE SYSTEM Comment: Reference Range: 88-243 Lab test performed by: [facility] [id number] [place] [address] Makeda RUFF MD 06/28/2005 9:25 AM CDT Rg Morel MD CHEMISTRY ORDERABLES Final Resul t Performing Organization Address [facility] de Phone Number INTERFACE SYSTEM Refer to clinic/hospital department * HOMOCYSTEINE NUTRITIONAL (06/28/2005 9:25 AM CDT) HOMOCYSTEINE NUTRITIONAL 7.0 5.4 - 11.9 umol/L INTERFACE SYSTEM Comment: HOMOCYSTEINE LEVELS ARE INCREASED IN BOTH FOLATE AND VITAMIN B12 DEFICIENCIES. A METHYLMALONIC ACID LEVEL CAN DIFFERENTIATE THE TWO DISORDERS SINCE IT IS INCREASED IN VITAMIN B12 DEFICIENCY BUT NOT IN FOLATE DEFICIENCY. [facility]: [facility] [address] [place] [address] ZULEYMA BYRNES MD 06/28/2005 9:25 AM CDT us Rg Morel MD CHEMISTRY ORDERABLES Final Resul t Performing Organization Address [facility] de Phone Number INTERFACE SYSTEM Refer to clinic/hospital department * VITAMIN B1 (06/28/2005 9:25 AM CDT) VITAMIN B1 167 87 - 280 nmol/L INTERFACE SYSTEM Comment: Lab test performed by: [facility] [address] [place], [place] SONA STEELE MD 06/28/2005 9:25 AM CDT Rg Morel MD CHEMISTRY ORDERABLES Final Resul t Performing Organization Address [facility] Phone Number INTERFACE SYSTEM Refer to clinic/hospital department * (ABNORMAL) FOLATE RBC AND HEMATOCRIT (06/28/2005 9:25 AM CDT) HEMATOCRIT, FOLATE 46.3(H) 35.5 - 44.0 % INTERFACE SYSTEM RBC FOLATE 603 >=341 ng/mL INTERFACE SYSTEM 06/28/2005 9:25 AM CDT Rg Morel MD CHEMISTRY ORDERABLES Final Resul t Performing Organization Address [facility] Phone Number INTERFACE SYSTEM Refer to clinic/hospital department * VITAMIN B12 (06/28/2005 9:25 AM CDT) VITAMIN B12 774 243 - 894 pg/mL INTERFACE SYSTEM Comment: It has been reported that between 5 to 10% of patients with values between 200 and 400 pg/mL may experience neuropsychiatric and hematologic abnormalities due to occult B12 deficiency. Less than 1% of patients with values above 400 pg/mL will have symptoms. 06/28/2005 9:25 AM CDT Rg Morel MD CHEMISTRY ORDERABLES Final Resul t Performing Organization Address [facility] Number INTERFACE SYSTEM Refer to clinic/hospital department * (ABNORMAL) PHENYTOIN LEVEL, TOTAL (06/28/2005 9:25 AM CDT) PHENYTOIN TOTAL 24.9(H) 10.0 - 20.0 ug/mL INTERFACE SYSTEM Comment: Phenytoin Toxic Level >= 30 ug/mL Phenytoin Severely Toxic Level >= 40 ug/mL 06/28/2005 9:25 AM CDT Rg Morel MD CHEMISTRY ORDERABLES Final Resul t Performing Organization Address [facility] Number INTERFACE SYSTEM Refer to clinic/hospital department * (ABNORMAL) LIPID PANEL (06/28/2005 9:25 AM CDT) CHOLESTEROL 209(H) 100 - 199 mg/dL INTERFACE SYSTEM TRIGLYCERIDE 198(H) 10 - 149 mg/dL INTERFACE SYSTEM HDL 99(H) 40 - 59 mg/dL INTERFACE SYSTEM LDL CALCULATED 70 <=99 mg/dL INTERFACE SYSTEM CHOL/HDL RATIO 2.1 2.0 - 5.0 INTER FACE SYSTEM Comment:See interpretive vonnie a section for risk classifications. LIPID PANEL COMMENT See below INTERFACE SYSTEM Comment: Adult ATP III Classifications: Cholesterol (mg/dL) Triglyceride (mg/dL) Desirable <200 Normal <150 Borderline 200 - 239 Borderline High 150 - 199 High >=240 High 200 - 499 Very High >=500 HDL Cholesterol (mg/dL) LDL (mg/dL) Low (increased risk) <40 Optimal <100 High (reduced risk) >=60 Near or above optimal 100 - 129 Borderline 130 - 159 High 160 - 189 Very High >=190 LDL calculation is not accurate if Triglycerides are greater than 400 mg /dL Pediatric NCEP Classifications: Cholesterol(<20 years),(mg/dL) Triglyceride Desirable <170 Pediatric classification Borderline 170 - 199 not defined. 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
--- OUTSIDE RECORDS SUMMARY | 2025-02-12 09:39 | XMS_ITS | Encounter Summary ---
Author Organization [facility] Address [address] [place] [address] Care Team Providers Care Air Technician Name Role Phone Linda Stone MD Primary Care Provider [phone] Encounter Details Date Type Department Care Team (Late st Contact Info) Description 11/25/2003 Outpatient Historical [facility] - [facility] [address] [place] [address] Brayden Muñoz Social History Tobacco Use Types Packs/Day Years Used Date Smoking Tobacco: Never Assessed Comments Unknown Sex and Gender Information Value Date Recorded Sex Assigned at Not on file Legal 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
--- OUTSIDE RECORDS SUMMARY | 2025-02-12 09:39 | XMS_ITS | Encounter Summary ---
Author Organization [facility] Address [address] [place] [address] Care Team Providers Care Zoo Keeper Name Role Phone Linda Stone MD Primary Care Provider [phone] Encounter Details Date Type Department Care Team (Late st Contact Info) Description 10/30/2004 Outpatient Historical [facility] Primary Care - [facility] [address] [place] [address] Giovanni Silva MD [address] [facility] [address] [place], [place] [id number] Social History Tobacco Use Types Packs/Day Years Used Date Smoking Tobacco: Never Assessed Comments Unknown Sex and Gender Information Value Date Recorded Sex Assigned at Not on file Legal Sex Female 5:19 AM PUBLICITY AGENT Gender Identity Not on file Sexual Orientation Not on file documented as of this encounter Plan of Treatment Not on file documented as of this encounter Visit Diagnoses Not on filedocumented in this encounter Care Teams Zoo Keeper Relationship Specialty Start Date End Date Linda Stone MD [address] [place] [address] PCP - General Internal Medicine 04/02/11 documented as of this encounter
--- OUTSIDE RECORDS SUMMARY | 2025-02-12 09:39 | XMS_ITS | Encounter Summary ---
Author Organization [facility] Address [address] [place] [address] Care Team Providers Care Spindraw Operator Name Role Phone Linda Stone MD Primary Care Provider [phone] Encounter Details Date Type Department Care Team (Late st Contact Info) Description 07/12/2003 Outpatient Historical [facility] Primary Care - [facility] [address] 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 [address] [place] [address] PCP - General Internal Medicine 04/02/11 documented as of this encounter
--- OUTSIDE RECORDS SUMMARY | 2025-02-12 09:39 | XMS_ITS | Encounter Summary ---
Author Organization [facility] Address [address] [place] [address] Care Team Providers Care Electrical Line Mechanic Name Role Phone Linda Stone MD Primary Care Provider [phone] Encounter Details Date Type Department Care Team (Late st Contact Info) Description 05/20/2003 Outpatient Historical [facility] Primary Care - [facility] [address] [place] [address] Brayden Muñoz Social History Tobacco Use Types Packs/Day Years Used Date Smoking Tobacco: Never Assessed Comments Unknown Sex and Gender Information Value Date Recorded Sex Assigned at Not on file Legal Sex Female 5:19 AM WOMEN NURSE Gender Identity Not on file Sexual Orientation Not on file documented as of this encounter Plan of Treatment Not on file documented as of this encounter Visit Diagnoses Not on filedocumented in this encounter Care Teams Electrical Line Mechanic Relationship Specialty Start Date End Date Linda Stone MD [address] [facility] [address] [place] [address] PCP - General Internal Medicine 04/02/11 documented as of this encounter
--- OUTSIDE RECORDS SUMMARY | 2025-02-12 09:39 | XMS_ITS | Encounter Summary ---
Author Organization [facility] Address [address] [place] [address] Care Team Providers Care Home Builder Name Role Phone Linda Stone MD Primary Care Provider [phone] Encounter Details Date Type Department Care Team (Latest Contact Info) Description 05/04/2005 Outpatient Historical [facility] Rg Morel MD [address] [place] [address] GEN CONVUL EPI W/O MENTN INTRACT ([facility]) (Primary Dx) Social History Tobacco Use Types Packs/Day Years Used Date Smoking Tobacco: Never Assessed Comments Unknown Sex and Gender Information Value Date Recorded Sex Assigned at Not on file Legal Sex Female 5:19 AM WELDER FIRST CLASS Gender Identity Not on file Sexual Orientation Not on file documented as of this encounter Plan of Treatment Not on file documented as of this encounter Visit Diagnoses Diagnosis Generalized convulsive epilepsy without mention of intractable epilepsy ([facility])- Primary Generalized convulsive epilepsy without mention of intractable epilepsy documented in this encounter Care Teams Home Builder Relationship Specialty Start Date End Date Linda Stone MD [address] [place] [address] PCP - General Internal Medicine 04/02/11 documented as of this encounter
--- OUTSIDE RECORDS SUMMARY | 2025-02-12 09:39 | XMS_ITS | Encounter Summary ---
Author Organization [facility] Address [address] [place] [address] Care Team Providers Care Workforce Advisor Name Role Phone Linda Stone MD Primary Care Provider [phone] Encounter Details Date Type Department Care Team (Late st Contact Info) Description 03/10/2005 Outpatient Historical [facility] Primary Care - [facility] [address] [place] [address] Giovanni Silva MD [address] [place] [address] Social History Tobacco Use Types Packs/Day Years Used Date Smoking Tobacco: Never Assessed Comments Unknown Sex and Gender Information Value Date Recorded Sex Assigned at Not on file Legal Sex Female 5:19 AM PROFESSIONAL NURSING ASSISTANT Gender Identity Not on file Sexual Orientation Not on file documented as of this encounter Plan of Treatment Not on file documented as of this encounter Visit Diagnoses Not on filedocumented in this encounter Care Teams Workforce Advisor Relationship Specialty Start Date End Date Linda Stone MD [address] [place] [address] PCP - General Internal Medicine 04/02/11 documented as of this encounter
--- OUTSIDE RECORDS SUMMARY | 2025-02-12 09:39 | XMS_ITS | Encounter Summary ---
Author Organization [facility] Address [address] [place] [address] Care Team Providers Care Joinery Factory Worker Name Role Phone Linda Stone MD Primary Care Provider [phone] Encounter Details Date Type Department Care Team (Late st Contact Info) Description 06/15/2007 Outpatient Historical [facility] [address] [address] Rg Morel MD [address] [place] [address] Social History Tobacco Use Types Packs/Day Years Used Date Smoking Tobacco: Never Assessed Comments Unknown Sex and Gender Information Value Date Recorded Sex Assigned at Not on file Legal Sex Female 5:19 AM INVESTOR RELATIONS SPECIALIST Gender Identity Not on file Sexual Orientation Not on file documented as of this encounter Plan of Treatment Not on file documented as of this encounter Visit Diagnoses Not on filedocumented in this encounter Care Teams Joinery Factory Worker Relationship Specialty Start Date End Date Linda Stone MD [address] [place] [address] PCP - General Internal Medicine 04/02/11 documented as of this encounter
--- OUTSIDE RECORDS SUMMARY | 2025-02-12 09:39 | XMS_ITS | Encounter Summary ---
Author Organization [facility] Address [address] [place] [address] Care Team Providers Care Produce Department Manager Name Role Phone Linda Stone MD Primary Care Provider [phone] Encounter Details Date Type Department Care Team (Late st Contact Info) Description 06/28/2005 Outpatient Historical [facility] [address] [address] Rg Morel MD [address] [place] [address] Social History Tobacco Use Types Packs/Day Years Used Date Smoking Tobacco: Never Assessed Comments Unknown Sex and Gender Information Value Date Recorded Sex Assigned at Not on file Legal Sex Female 5:19 AM LIVING COACH Gender Identity Not on file Sexual Orientation Not on file documented as of this encounter Plan of Treatment Not on file documented as of this encounter Visit Diagnoses Not on filedocumented in this encounter Care Teams Produce Department Manager Relationship Specialty Start Date End Date Linda Stone MD [address] [place] [address] PCP - General Internal Medicine 04/02/11 documented as of this encounter
--- OUTSIDE RECORDS SUMMARY | 2025-02-12 09:39 | XMS_ITS | Encounter Summary ---
Author Organization [facility] Address [address] [place] [address] Care Team Providers Care Adult Crossing Guard Name Role Phone Linda Stone MD Primary Care Provider [phone] Encounter Details Date Type Department Care Team (Late st Contact Info) Description 09/20/2007 Orders Only [facility] Primary Care - [address] [place] [address] Giovanni Silva MD [address] [facility] [address] [place] [address] Social History Tobacco Use Types Packs/Day Years Used Date Smoking Tobacco: Never Assessed Comments Unknown Sex and Gender Information Value Date Recorded Sex Assigned at Not on file Legal Sex Female 5:19 AM CREEL OPERATOR Gender Identity Not on file Sexual Orientation Not on file documented as of this encounter Progress Notes * Giovanni Silva MD - 01/24/2008 5:58 PM CDT TIME:08:58 am PATIENT`S HOME PHONE: PATIENT`S WORK PHONE: PATIENT`S INSURANCE: [employer] PPO WHO TOOK THE CALL: Allie Greco GENERAL INFORMATION PATIENT STATUS: Established Patient. LAST VISIT: PCP: rebecca. ALTERNATIVE PHONE NUMBER: [phone] WHO CALLED: Patient called. CURRENT ALLERGY LIST: NO KNOWN ALLERGIES PHARMACY NUMBER: will have when call back [phone] PROBLEMS: no otc medication COUGH:Patient complains of cough. upper ribs lt side hurting--and when she breathes--worse at nightloose nothing will come up SECTION 1: REQUESTED ACTION [email or web address] 09/20/07 at 09:01 am: MEDICATION REQUEST: rx----allie DOCTOR`S RESPONSE: lewis 09/20/07 at 10:12 am she may want to come in MEDICATIONS: Call in to Pharmacy ZITHROMAX Z-SUE ORAL TABLET 250 MG, as directed, 1 Dispensed, status: NEW PRESCRIPTION, 09/20/2007. ROBITUSSIN AC 6.25-10MG/5ML, 2 tsp qid prn, 12 Dispensed, status: NEW PRESCRIPTION, 09/20/2007. FINAL ACTION: [email or web address] 09/20/07 at 12:56 pm lmor for return call---allie Spoke with patient 09/20/07 at 04:06 pm. Called pharmacy at 09/20/07 at 04:06 pm. allie Electronically Signed by: Allie Greco on Thursday, September 20, 2007 documented in this encounter Plan of Treatment Not on file documented as of this encounter Visit Diagnoses Not on filedocumented in this encounter Care Teams Adult Crossing Guard Relationship Specialty Start Date End Date Linda Stone MD [address] [facility] [facility] [address] [place] [address] PCP - General Internal Medicine 04/02/11 documented as of this encounter
--- OUTSIDE RECORDS SUMMARY | 2025-02-12 09:39 | XMS_ITS | Encounter Summary ---
Author Organization [facility] Address [address] [place] [address] Care Team Providers Care Lace Winder Name Role Phone Linda Stone MD Primary Care Provider [phone] Encounter Details Date Type Department Care Team (Late st Contact Info) Description 05/02/2003 Outpatient Historical [facility] Primary Care - [facility] [address] [place] [address] Brayden Muñoz Social History Tobacco Use Types Packs/Day Years Used Date Smoking Tobacco: Never Assessed Comments Unknown Sex and Gender Information Value Date Recorded Sex Assigned at Not on file Legal Sex Female 5:19 AM MEAT CUTTING BLOCK REPAIRER Gender Identity Not on file Sexual Orientation Not on file documented as of this encounter Plan of Treatment Not on file documented as of this encounter Visit Diagnoses Not on filedocumented in this encounter Care Teams Lace Winder Relationship Specialty Start Date End Date Linda Stone MD [address] [facility] [address] [place] [address] PCP - General Internal Medicine 04/02/11 documented as of this encounter
--- OUTSIDE RECORDS SUMMARY | 2025-02-12 09:39 | XMS_ITS | Clinical Summary ---
Author Organization [facility] Address [address] [place] [address] Care Team Providers Care Professional Bass Fisherman Name Role Phone Linda Stone MD Primary Care Provider [phone] Allergies No known active allergies Medications ALPRAZolam (XANAX) 0.25 mg Oral tabletIndication s:Anxiety state, unspecified Take 1 Tab by mouth nightly as needed for Anxiety. 30 Tab 5 09/11/2012 Active anastrozole (ARIMIDEX) 1 mg tabletIndication s:Carcinoma of breast (CMS/HCC) Take 1 mg by mouth daily. Active buPROPion XL 24 hour (WELLBUTRIN XL) 300 mg tabletIndication s:Depressive disorder, not elsewhere classified Take 1 Tab by mouth daily slackman. 30 Tab 11 11/22/2013 Active ARIPiprazole (ABILIFY) 5 mg tabletIndication s:Depressive disorder, not elsewhere classified Take 1 Tab by mouth daily. 30 Tab 11 11/22/2013 Active DULoxetine (CYMBALTA) 60 mg Capsule, Delayed Release(E.C.)Ind ications:Depress dawood disorder, not elsewhere classified Take 1 Cap by mouth 2 times daily. 60 Cap 11 11/22/2013 Active folic acid-Vit B6-Vit B12 (FOLBIC) 2.5-25-2 mg TabletIndication s:Anemia, unspecified Take 1 Tab by mouth daily. 30 Tab 11 11/22/2013 Active Active Problems Problem Noted Date Diagnosed Date Carcinoma of breast 01/16/2011 Overview (01/16/2011): Sep 2010 Dr magdaleno Tobacco use disorder 03/10/2005 Depressive disorder, not elsewhere classified Anxiety state, unspecified 03/09/2005 Resolved Problems Problem Noted Date Diagnosed Date Resolved Date Anemia, unspecified 06/03/2006 08/03/20 11 Social History Tobacco Use Types Packs/Day Years Used Date Smoking Tobacco: Every Day Cigarettes Smokeless Tobacco: Never Tobacco Cessation:Ready to Q uit: No Alcohol Use Standard Drinks/Week Comments Not Asked 0 (1 standard drink = 0.6 oz pur e alcohol) Comments No Sex and Gender Information Value Date Recorded Sex Assigned at Not on file Legal Sex Female 5:19 AM CUSTOMER PROJECT MANAGER Gender Identity Not on file Sexual Orientation Not on file Occupation Industry Job Start Date Job End Date Not on file Not on file Not on file Not on file Last Filed Vital Signs Vital Sign Reading Time Taken Comments Blood Pressure 131/84 11/22/2013 2:25 PM CDT Pulse - - Temperature 37.1 C (98.8 F) 08/18/2010 11:25 AM CUSTOMER PROJECT MANAGER Respiratory Rate - - Oxygen Saturation - - Inhaled Oxygen Concentration - - Weight 72.1 kg (159 lb) 11/22/2013 2:25 PM CDT Height 160 cm (5' 3) 09/11/2012 11:57 AM CUSTOMER PROJECT MANAGER Body Mass Index 28.17 09/11/2012 11:57 AM CUSTOMER PROJECT MANAGER Plan of Treatment Health Maintenance Due Date Last Done Comments DTAP/TDAP/TD VACCINES (1 - Tdap) 1981 HPV/Cotest (21-29) 1983 HPV/Cotest (30-65) 1992 COLORECTAL SCREENING 2007 Colorectal Cancer Screening 2007 FIT-DNA Q 3 years 2007 FIT/FOBT Q 1 year 2007 Flex Sig/CT Colonography Q 5 years 2007 ZOSTER VACCINE (1 of 2) 2012 CERVICAL CANCER SCREENING 10/03/2013 PAP SMEAR 10/03/2013 10/03/2010 BREAST CANCER SCREENING 11/22/2014 11/22/2013, 10/03 INFLUENZA VACCINE (#1) 2024 Preventative Visit- Commercial 09/12/2024 0 11/22/2013, 09/11/2012, 03/21/2009, Additional history exists RSV VACCINE (60+ or ) (1 - 1-dose 75+ series) 2037 Insurance [facility] OPTIONS PPO [id number] Care Teams Professional Bass Fisherman Relationship Specialty Start Date End Date Linda Stone MD [address] [address] PCP - General Internal Medicine 04/02/11
--- OUTSIDE RECORDS SUMMARY | 2025-02-12 09:40 | XMS_ITS | Encounter Summary ---
Author Organization [facility] Address [address] [place] [address] Care Team Providers Care Relay Worker Name Role Phone Linda Stone MD Primary Care Provider [phone] Encounter Details Date Type Department Care Team (Late st Contact Info) Description 04/19/2006 Outpatient Historical [facility] Support Services EEG [employer] [address] [place] [address] Navya Decker MD [address] [address] Social History Tobacco Use Types Packs/Day Years Used Date Smoking Tobacco: Never Assessed Comments Unknown Sex and Gender Information Value Date Recorded Sex Assigned at Not on file Legal Sex Female 5:19 AM SYSTEM ARCHITECT Gender Identity Not on file Sexual Orientation Not on file documented as of this encounter Plan of Treatment Not on file documented as of this encounter Visit Diagnoses Not on filedocumented in this encounter Care Teams Relay Worker Relationship Specialty Start Date End Date Linda Stone MD [address] [place] [address] PCP - General Internal Medicine 04/02/11 documented as of this encounter
--- OUTSIDE RECORDS SUMMARY | 2025-02-12 09:40 | XMS_ITS | Encounter Summary ---
Author Organization [facility] Address [address] [place] [address] Care Team Providers Care Anaesthetic Technician Name Role Phone Linda Stone MD Primary Care Provider [phone] Encounter Details Date Type Department Care Team (Late st Contact Info) Description 06/24/2006 Orders Only [facility] Primary Care - [facility] [address] [place] [address] Giovanni Silva MD [address] [facility] [address] [place], [place] [id number] Social History Tobacco Use Types Packs/Day Years Used Date Smoking Tobacco: Never Assessed Comments Unknown Sex and Gender Information Value Date Recorded Sex Assigned at Not on file Legal Sex Female 5:19 AM BAR HELPER Gender Identity Not on file Sexual Orientation Not on file documented as of this encounter Plan of Treatment Not on file documented as of this encounter Visit Diagnoses Not on filedocumented in this encounter Care Teams Anaesthetic Technician Relationship Specialty Start Date End Date Linda Stone MD [address] [place] [address] PCP - General Internal Medicine 04/02/11 documented as of this encounter
--- OUTSIDE RECORDS SUMMARY | 2025-02-12 09:40 | XMS_ITS | Encounter Summary ---
Author Organization [facility] Address [address] [place] [address] Care Team Providers Care Mechanical Engineering Draftsperson Name Role Phone Linda Stone MD Primary Care Provider [phone] Encounter Details Date Type Department Care Team (Late st Contact Info) Description 2006 Outpatient Historical [facility] Primary Care - [facility] [address] [facility] [address] [place] [address] Giovanni Silva MD [address] [facility] [facility] [address] [place] [address] Social History Tobacco Use Types Packs/Day Years Used Date Smoking Tobacco: Never Assessed Comments Unknown Sex and Gender Information Value Date Recorded Sex Assigned at Not on file Legal Sex Female 5:19 AM WORKPLACE REHABILITATION OFFICER Gender Identity Not on file Sexual Orientation Not on file documented as of this encounter Last Filed Vital Signs Vital Sign Reading Time Taken Comments Blood Pressure 120/80 2006 8:00 AM WORKPLACE REHABILITATION OFFICER Pulse - - Temperature 36.9 C (98.4 F) 2006 8:00 AM WORKPLACE REHABILITATION OFFICER Respiratory Rate - - Oxygen Saturation - - Inhaled Oxygen Concentration - - Weight 53.5 kg (118 lb) 2006 8:00 AM WORKPLACE REHABILITATION OFFICER Height - - Body Mass Index - - documented in this encounter Plan of Treatment Not on file documented as of this encounter Visit Diagnoses Not on filedocumented in this encounter Care Teams Mechanical Engineering Draftsperson Relationship Specialty Start Date End Date Linda Stone MD [address] [address] [place] [address] PCP - General Internal Medicine 04/02/11 documented as of this encounter
--- OUTSIDE RECORDS SUMMARY | 2025-02-12 09:40 | XMS_ITS | Encounter Summary ---
Author Organization [facility] Address [address] [place] [address] Care Team Providers Care Director Of Enterprise Applications Name Role Phone Linda Stone MD Primary Care Provider [phone] Encounter Details Date Type Department Care Team (Late st Contact Info) Description 05/31/2006 Outpatient Historical [facility] Primary Care - [facility] [address] [place] [address] Giovanni Silva MD [address] [place] [address] Social History Tobacco Use Types Packs/Day Years Used Date Smoking Tobacco: Never Assessed Comments Unknown Sex and Gender Information Value Date Recorded Sex Assigned at Not on file Legal Sex Female 5:19 AM SENIOR WEB SERVICES DEVELOPER Gender Identity Not on file Sexual Orientation Not on file documented as of this encounter Plan of Treatment Not on file documented as of this encounter Visit Diagnoses Not on filedocumented in this encounter Care Teams Director Of Enterprise Applications Relationship Specialty Start Date End Date Linda Stone MD [address] [place] [address] PCP - General Internal Medicine 04/02/11 documented as of this encounter
--- OUTSIDE RECORDS SUMMARY | 2025-02-12 09:40 | XMS_ITS | Encounter Summary ---
Author Organization [facility] Address [address] [place] [address] Care Team Providers Care Poultry Breeder Name Role Phone Linda Stone MD Primary Care Provider [phone] Encounter Details Date Type Department Care Team (Late st Contact Info) Description 05/31/2006 Orders Only [facility] Primary Care - [address] [place] [address] Giovanni Silva MD [address] [facility] [address] [place] [address] Social History Tobacco Use Types Packs/Day Years Used Date Smoking Tobacco: Never Assessed Comments Unknown Sex and Gender Information Value Date Recorded Sex Assigned at Not on file Legal Sex Female 5:19 AM SOCKET WELDER HELPER Gender Identity Not on file Sexual Orientation Not on file documented as of this encounter Progress Notes * Giovanni Silva MD - 06/25/2008 6:11 PM CDT TEMPERATURE: 99??f Oral WEIGHT: 117lbs BLOOD PRESSURE: 120/84 Right Arm Sitting NURSE NAME: Angie Fregoso D ALLERGIES: Allergies were reviewed. MEDICATIONS: Medications may have changed. to review medications. CHIEF COMPLAINT HISTORY: HISTORY: 783.21-ABNORMAL LOSS OF WEIGHT has consitently lossed weight for quite some time,d depression worsening ROS: GENERAL: DECREASED ACTIVITY, no complaints of feeling chronically ill, FEELS FATIGUED, FEELS LETHARGIC, FEELING OF MALAISE, HAS LOST WEIGHT. EYES: No vision changes or diplopia. ENT: No hearing loss, epistaxis, hoarseness or dysphagia. No sinus congestion. ENDOCRINE: No heat or cold intolerance, no excessive thirst. CARDIAC: No chest pain, palpitations, orthopnea, dyspnea on exertion, or paroxysmal nocturnal dyspnea. : No frequency, urgency, hematuria or dysuria. GI: No abdominal pain, nausea, vomiting, diarrhea, constipation, melena, or hematochezia. PAST MEDICAL HISTORY: MEDICAL: dep, .sz do SURGICAL: No previous surgery. ALLERGIES/ADVERSE REACTIONS: No known drug allergies. FAMILY HISTORY: GENERAL FAMILY ILLNESS: POSITIVE HISTORY OF DEPRESSION. FATHER: SOCIAL HISTORY: TOBACCO USE: Has no significant smoking history. PHYSICAL EXAMINATION: CONSTITUTIONAL: GENERAL APPEARANCE: Healthy appearing patient in no distress. NECK/THYROID: Trachea midline. No thyroid enlargement, tenderness, or mass. No supraclavicular or cervical adenopathy. RESPIRATORY: Clear to auscultation and percussion. Normal respiratory effort. CARDIOVASCULAR: CARDIAC: Regular rhythm. No murmurs, rubs, or gallops. ARTERIAL: Aortic pulses of normal amplitude with no bruits. EDEMA/VARICOSITIES OF EXTREMITIES: No edema or varicosities. GASTROINTESTINAL: ABDOMEN: Soft, non-tender, without masses. Bowel sounds active. LIVER/SPLEEN/KIDNEY: No hepatosplenomegaly, tenderness or nodularity. Kidneys not palpable. ASSESSMENT/PLAN: 305.1-TOBACCO ABUSE ASSESSMENT: The patient continues to smoke and was strongly advised to discontinue tobacco productscompletely. 311-DEPRESSION switch to cymbalta ASSESSMENT: The patient's depression is worsening. MEDICATIONS: CYMBALTA ORAL CAPSULE ENTERIC COATED 60 MG, 1 tab po qday, 30 Dispensed, 11 Fills, status: NEW PRESCRIPTION, 05/31/2006. 780.39-SEIZURE stable 783.21-ABNORMAL LOSS OF WEIGHT likely related to 311 but may need cxr, ct ap if continues to lose LAB ORDERS: Order number: [id number] Test Ordered: COMPREHENSIVE METABOLIC PANEL & GFR 1099 Order number: [id number] Test Ordered: TSH 1720 Order number: [id number] Test Ordered: CBC W/ DIFFERENTIAL 3150 Order number: [id number] Test Ordered: AMYLASE LEVEL 1041 794.8-ELEVATED LFT recheck HEALTH MAINTENANCE: LAST BREAST EXAM DATE: years. LAST PAP DATE: years. LAST MAMMOGRAM DATE: years. LAST DATE HORMONE REPLACE DISCUSSED: 05-31-2006. DISCUSSED SMOKING: yes-pos. LAST TD: n/a LAST TD: n/a SEXUAL ACTIVITY DISCUSSED: yes-pos. SUBSTANCE ABUSE DISCUSSED: yes-pos. ( limited) INJURY PREVENTION DISCUSSED: yes-pos. DIET AND EXERCISE DISCUSSED: yes-neg. ADVANCED DIRECTIVES DISCUSSED: neg. LAST DATE COLONOSCOPY: neg. LAST DATE FLEX SIG: neg. LAST DATE FOBT: neg. LAST BONE DENSITY DATE: neg. DIABETIC EYE EXAM: neg. DIABETIC EYE EXAM PROVIDER: neg. DIABETIC FOOT EXAM: neg LAST FLU VACCINE:neg LAST PNEUMOCOCCAL:neg Electronically Signed by: Giovanni Silva MD on Sunday, June 04, 2006 documented in this encounter Plan of Treatment Not on file documented as of this encounter Visit Diagnoses Not on filedocumented in this encounter Care Teams Poultry Breeder Relationship Specialty Start Date End Date Linda Stone MD [address] [facility] [address] [place] [address] PCP - General Internal Medicine 04/02/11 documented as of this encounter
--- OUTSIDE RECORDS SUMMARY | 2025-02-12 09:40 | XMS_ITS | Encounter Summary ---
Author Organization [facility] Address [address] [place] [address] Care Team Providers Care Truss Maker Name Role Phone Linda Stone MD Primary Care Provider [phone] Encounter Details Date Type Department Care Team (Late st Contact Info) Description 11/27/2007 Orders Only [facility] Primary Care - [address] [place] [address] Giovanni Silva MD [address] [facility] [address] [place] [address] Social History Tobacco Use Types Packs/Day Years Used Date Smoking Tobacco: Never Assessed Comments Unknown Sex and Gender Information Value Date Recorded Sex Assigned at Not on file 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 TOBACCO USE Patient is a current tobacco user. MEDICATIONS: Medication list current. CHIEF COMPLAINT yearly PE. pt stated she is not feeling well and very fatigued. pt stated her llefthand is bothering her as well. she stated she thinks it may be broken. HISTORY: HISTORY: 780.39-SEIZURE Dr Morel following for seizures 794.8-ELEVATED LFT remain elevated V70.0-ROUTINE GENERAL MEDICAL EXAMINATION The patient is here for a routine examination. No significant complaints noted. ROS: GENERAL: FEELS FATIGUED, DECREASED ENERGY LEVEL, FEELS LETHARGIC, FEELING OF MALAISE. ENT: No hearing loss, epistaxis, hoarseness or dysphagia. No sinus congestion.. ENDOCRINE: No heat or cold intolerance, no excessive thirst.. CARDIAC: No chest pain, palpitations, orthopnea, dyspnea on exertion, or paroxysmal nocturnal dyspnea.. RESPIRATORY: No dyspnea, cough, hemoptysis or wheezing.. : No frequency, urgency, hematuria or dysuria.. GI: No abdominal pain, nausea, vomiting, diarrhea, constipation, melena, or hematochezia.. PAST MEDICAL HISTORY: MEDICAL: seizure disorder, elevated liver enzymes SURGICAL: none SOCIAL HISTORY: TOBACCO USE: Currently smokes. OCCUPATION: . [employer] ALCOHOL: Does not give any significant history of alcohol usage. 2- 3 glasses of wine every night PHYSICAL EXAMINATION: CONSTITUTIONAL: GENERAL APPEARANCE: Healthy appearing [...] tenderness or nodularity. Kidneys not palpable. ASSESSMENT/PLAN: 285.9-ANEMIA UNSPECIFIED ASSESSMENT: Will not change medication, continue to monitor for complications. V70.0-ROUTINE GENERAL MEDICAL EXAMINATION ASSESSMENT: The patient is doing well and no distinct problems were identified on exam. MEDICATIONS: FOLBIC ORAL TABLET 2.5-25-2 MG, 1 tab po qday, 30 Dispensed, 11 Fills, status: CONTINUED, 11/27/2007. CYMBALTA ORAL CAPSULE ENTERIC COATED 60 MG, 1 tab po qday, 30 Dispensed, 11 Fills, status: CONTINUED, 11/27/2007. LAB ORDERS: Order number: [id number] Test Ordered: CBC W/ DIFFERENTIAL 3150 Order number: [id number] Test Ordered: TSH (REFLEX FREE T4/FREE T3) 1727 Order number: [id number] Test Ordered: BASIC METABOLIC PANEL & GFR 1607 SPECIALTY REFERRAL: ORTHOPEDICS Dr. Paulie Harper ph: [phone] fax: [phone]. HEALTH MAINTENANCE: LAST BREAST EXAM DATE: years. LAST PAP DATE: years. LAST DATE PELVIC EXAM: years. LAST MAMMOGRAM DATE: years. DISCUSSED SMOKING: yes. LAST TD: unknown SEXUAL ACTIVITY DISCUSSED: . SUBSTANCE ABUSE DISCUSSED: no. INJURY PREVENTION DISCUSSED: yes. DIET AND EXERCISE DISCUSSED: no. ADVANCED DIRECTIVES DISCUSSED: no. LAST DATE COLONOSCOPY: never. LAST FLU VACCINE:no LAST PNEUMOCOCCAL:no Electronically Signed by: Giovanni Silva MD on Sunday, January 20, 2008 documented in this encounter Plan of Treatment Not on file documented as of this encounter Visit Diagnoses Not on filedocumented in this encounter Care Teams Truss Maker Relationship Specialty Start Date End Date Linda Stone MD [address] [facility] [address] [place] [address] PCP - General Internal Medicine 04/02/11 documented as of this encounter
--- OUTSIDE RECORDS SUMMARY | 2025-02-12 09:40 | XMS_ITS | Encounter Summary ---
Author Organization [facility] Address [address] [place] [address] Care Team Providers Care Statistical Geneticist Name Role Phone Linda Stone MD Primary Care Provider [phone] Encounter Details Date Type Department Care Team (Late st Contact Info) Description 05/31/2006 Outpatient Historical [facility] Primary Care - [facility] [address] [facility] [address] [place] [address] Giovanni Silva MD [address] [facility] [address] [facility] [address] [place] [address] Social History Tobacco Use Types Packs/Day Years Used Date Smoking Tobacco: Never Assessed Comments Unknown Sex and Gender Information Value Date Recorded Sex Assigned at Not on file 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
--- OUTSIDE RECORDS SUMMARY | 2025-02-12 09:40 | XMS_ITS | Encounter Summary ---
Author Organization [facility] Address [address] [place] [address] Care Team Providers Care Qc Scientist Name Role Phone Linda Stone MD Primary Care Provider [phone] Encounter Details Date Type Department Care Team (Late st Contact Info) Description 11/27/2007 Outpatient Historical [facility] Primary Care - [facility]1] [address] [facility] [facility] [address] [place] [address] Giovanni Silva MD [address] [facility] [address] [place] [address] Social History Tobacco Use Types Packs/Day Years Used Date Smoking Tobacco: Never Assessed Comments Unknown Sex and Gender Information Value Date Recorded Sex Assigned at Not on file 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
--- OUTSIDE RECORDS SUMMARY | 2025-02-12 09:40 | XMS_ITS | Clinical Summary ---
Author Organization [facility] Address [address] [place] [address] Care Team Providers Care Director Of Epidemiology Name Role Phone Unavailable Primary Care Provider Unavailabl e Source Comments [facility],non-owned Affiliates and Associated Physician Practices is amultiple site organization consisting of ambulatory clinics and hospital sitesin [place], [place], [place] and [place]. This disclosure is being madepursuant to the Care Everywhere program and may not contain all information available regarding this patient. Last updated 18.[facility] [employer] Allergies No known active allergies Social History Tobacco Use Types Packs/Day Years Used Date Smoking Tobacco: Never Assessed Comments Unknown Sex and Gender Information Value Date Recorded Sex Assigned at Not on file Legal Sex Female 8:42 AM CDT Gender Identity Not on file Sexual Orientation Not on file Plan of Treatment Health Maintenance Due Date Last Done Comments COLOGUARD (AGES 45-75) - COL ON CA SCREENING 1962 COLON MONITORING 1962 COLONOSCOPY - COLON CA SCREENING 1962 CT COLONOGRAPHY - COLON CA SCREENING 1962 Colorectal Cancer Screening 1962 FIT - COLON CA SCREENING 1962 FLEX SIG - COLON CA SCREENING 1962 LIPID TESTING 1962 MAMMOGRAM 1962 HIV SCREENING 1977 HEPATITIS C SCREENING 10/07/1980 DTAP/TDAP/TD VACCINES (1 - Tdap) 1981 PNEUMOCOCCAL VACCINE 50+ (1 of 1 - PCV) 2012 ZOSTER VACCINE (1 of 2) 2012 COVID-19 VACCINE (1 - 2023-2 5 season) 2024 DEPRESSION SCREENING 09/12/2024 INFLUENZA VACCINE (Season Ended) 2025 Respiratory Syncytial Virus (RSV) Vaccine Pt: or over 60 yrs (1 - 1-dose 75+ series) 2037 HEPATITIS B VACCINE Aged Out No longe r eligible based on patient's age to complete this topic HIB VACCINE Aged Out No longer eligi ble based on patient's age to complete this topic HPV VACCINE Aged Out No longer eligi ble based on patient's age to complete this topic MENINGOCOCCAL (Group B) VACC INE SHARED DECISION-MAKING Aged Out No longer eligibl e based on patient's age to complete this topic MENINGOCOCCAL GROUPS A/C/Y/W VACCINE Aged Out No longer eligible b ased on patient's age to complete this topic Insurance [facility] Address: [facility] [address] [place] [address]
--- OUTSIDE RECORDS SUMMARY | 2025-02-12 09:40 | XMS_ITS | Encounter Summary ---
Author Organization [facility] Address [address] [place] [address] Care Team Providers Care Occupational Work Experience Teacher Name Role Phone Linda Stone MD Primary Care Provider [phone] Encounter Details Date Type Department Care Team (Late st Contact Info) Description 11/27/2007 Outpatient Historical [facility] Primary Care - [facility] [address] [facility] [address] [place] [address] Giovanni Silva MD [address] [facility] [address] [place] [address] Social History Tobacco Use Types Packs/Day Years Used Date Smoking Tobacco: Never Assessed Comments Unknown Sex and Gender Information Value Date Recorded Sex Assigned at Not on file 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
--- OUTSIDE RECORDS SUMMARY | 2025-02-12 09:40 | XMS_ITS | Encounter Summary ---
Author Organization [facility] Address [address] [place] [address] Care Team Providers Care Courtroom Deputy Or Calendar Clerk Name Role Phone Linda Stone MD Primary Care Provider [phone] Encounter Details Date Type Department Care Team (Late st Contact Info) Description 06/27/2006 Outpatient Historical [facility] Primary Care - [address] [place] [address] Giovanin Silva MD [address] [facility] [address] [place] [address] Unspecified Anemia (Primary Dx) Social History Tobacco Use Types Packs/Day Years Used Date Smoking Tobacco: Never Assessed Comments Unknown Sex and Gender Information Value Date Recorded Sex Assigned at Not on file 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 Gender Identity Not on file Sexual Orientation Not on file documented as of this encounter Plan of Treatment Not on file documented as of this encounter Procedures Procedure Name Priority Date/Time Associated Diagnosis Comments TRANSGLUTAMINASE IGA ANTIBODY Routine 06/27/2006 2:33 PM CDT PARIETAL CELL ANTIBODY Routine 2:33 PM CDT documented in this encounter Results * TRANSGLUTAMINASE IGA ANTIBODY (06/27/2006 2:33 PM CDT) TRANSGLUTAMINASE IGA AB <3 <5 U/mL INTERFACE SYSTEM Comment: Reference range: <5 U/mL Negative 5-8 U/mL Equivocal >8 U/mL Positive Lab test performed by: [facility] [address] [place], [place] SONA STEELE MD 06/27/2006 2:33 PM CDT Giovanni Silva MD CHEMISTRY ORDERABLES Final Resul t Performing Organization Address [facility] Phone Number INTERFACE SYSTEM Refer to clinic/hospital department * PARIETAL CELL ANTIBODY (06/27/2006 2:33 PM CDT) PARIETAL CELL AB <20.0 Units INT ERFACE SYSTEM Comment: Reference Range: <=20.0 NEGATIVE 20.1-24.9 EQUIVOCAL >=25.0 POSITIVE Anti-gastric parietal cell antibodies (Anti-GPA) were previously tested for by indirect immunofluorescence (IF) using mouse stomach as a substrate. Identification of the specific antibody target as H+/K+ ATPase protein (a gastric proton pump) has led to the development of an RODRIGO based assay. Antibodies to this protein are present in approximately 80% of patients with pernicious anemia and a small percentage of the general adult population. The latter percentage increases with age and may reflect the presence of atrophic gastritis. A negative test does not exclude a diagnosis of pernicious anemia. A test for intrinsic factor blocking antibody (IFab) may provide serological evidence in support of the diagnosis in some of these patients. Lab test performed by: [email or web address] [id number] [place] [address] Makeda RUFF MD 06/27/2006 2:33 PM CDT Giovanni Silva MD CHEMISTRY ORDERABLES Final Resul t Performing Organization Address [facility] Phone Number INTERFACE SYSTEM Refer to clinic/hospital department documented in this encounter Visit Diagnoses Diagnosis Anemia, unspecified- Primary documented in this encounter Care Teams Courtroom Deputy Or Calendar Clerk Relationship Specialty Start Date End Date Linda Stone MD [address] [place] [address] PCP - General Internal Medicine 04/02/11 documented as of this encounter
--- OUTSIDE RECORDS SUMMARY | 2025-02-12 09:40 | XMS_ITS | Encounter Summary ---
Author Organization [facility] Address [address] [place] [address] Care Team Providers Care Entry Specialists Name Role Phone Linda Stone MD Primary Care Provider [phone] Encounter Details Date Type Department Care Team (Late st Contact Info) Description 11/27/2007 Outpatient Historical [facility] Primary Care - [address] [place] [address] Giovanni Silva MD [address] 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 Gender Identity Not on file Sexual Orientation Not on file documented as of this encounter Plan of Treatment Not on file documented as of this encounter Procedures Procedure Name Priority Date/Time Associated Diagnosis Comments TSH WITH REFLEX FT4 AND FT3 Routine 11/27/2007 7:39 PM CDT CBC WITH DIFFERENTIAL Routine 11/27/2007 7:39 PM CDT BASIC METABOLIC PANEL Routine 11/27/2007 7:39 PM CDT documented in this encounter Results * (ABNORMAL) CBC WITH DIFFERENTIAL (11/27/2007 7:39 PM CDT) PLATELETS 386(H) 140 - 350 K/uL [facility] HEMOGLOBIN 14.6 11.8 - 14.8 g/dL [facility] RDW 13.3 11.5 - 14.5 % [facility] WBC 10.0(H) 4.0 - 9.8 K/uL [facility] MCH 34.5(H) 27.2 - 32.6 pg [facility] MPV 10.0 9.3 - 12.4 fL [facility] HEMATOCRIT 44.7(H) 35.5 - 44.0 % [facility] RDW-STDEV 51.7(H) 37.1 - 48.7 fL [facility] RBC 4.23 3.90 - 4.90 M/uL [facility] MCHC 32.7 31.5 - 35.5 % [facility] MCV 105.7(H) 82.0 - 99.0 fL [facility] EOSINOPHILS 1 0 - 7 % [facility] EOSINOPHIL ABSOLUTE 0.07 0.00 - 0.70 K/uL [facility] LYMPHOCYTES 22 16 - 45 % [facility] LYMPHOCYTE ABSOLUTE 2.22 0.70 - 4.50 K/uL [facility] BASOPHILS 0 0 - 2 % [facility] BASOPHILS ABSOLUTE 0.02 0.00 - 0.20 K/uL [facility] MONOCYTES 8 3 - 13 % [facility] MONOCYTE ABSOLUTE 0.84 0.10 - 1.30 K/uL [facility] NEUTROPHILS 68 45 - 70 % [facility] NEUTROPHIL ABSOLUTE 6.81 1.90 - 7.00 K/uL [facility] Blood specimen (specimen) 11/27/2007 7:39 PM CDT 11/27/2007 7:40 PM CDT Giovanni Silva MD HEMATOLOGY ORDERABLES Edited INTERFACE SYSTEM Refer to clinic/hospital department [facility] [address] [place] [address] * TSH WITH REFLEX FT4 AND FT3 (11/27/2007 7:39 PM CDT) TSH 1.71 0.27 - 4.20 uU/mL [facility] Blood specimen (specimen) 11/27/2007 7:39 PM CDT 11/27/2007 7:39 PM CDT Giovanni Silva MD CHEMISTRY ORDERABLES Final Resul t Performing Organization Address [facility] Co de Phone Number [facility] [address] [place] [address] * (ABNORMAL) BASIC METABOLIC PANEL (11/27/2007 7:39 PM CDT) GLUCOSE 99 65 - 99 mg/dL [facility] CALCIUM 8.2(L) 8.4 - 10.2 mg/dL [facility] CO2 24 22 - 30 mmol/L [facility] CREATININE 0.64 0.51 - 0.95 mg/dL [facility] POTASSIUM 3.7 3.5 - 4.9 mmol/L [facility] BUN 10 6 - 20 mg/dL [facility] CHLORIDE 105 96 - 108 mmol/L [facility] SODIUM 140 135 - 145 mmol/L [facility] GFR, >60 >=60 mL/min/1. 7 sq meter [facility] GFR >60 >=60 mL/min/1. 7 sq meter [facility] Comment: Estimated GFR rate interpretative information for both Americans and non- Americans is available on the [facility] at: [email or web address] Select: Lab Policies and Procedures Select: Reference Ranges - GFR Blood specimen (specimen) 11/27/2007 7:39 PM CDT 11/27/2007 7:39 PM CDT us Giovanni Silva MD CHEMISTRY ORDERABLES Edited [facility] [address] [facility] [address] [address] documented in this encounter Visit Diagnoses Diagnosis Routine general medical examination at a health care facility documented in this encounter Care Teams Entry Specialists Relationship Specialty Start Date End Date Linda Stone MD [address] [place] [address] PCP - General Internal Medicine 04/02/11 documented as of this encounter
--- OUTSIDE RECORDS SUMMARY | 2025-02-12 09:40 | XMS_ITS | Encounter Summary ---
Author Organization [facility] Address [address] [place] [address] Care Team Providers Care Head Baker Name Role Phone Linda Stone MD Primary Care Provider [phone] Encounter Details Date Type Department Care Team (Late st Contact Info) Description 06/27/2006 Outpatient Historical [facility] Primary Care - [facility] [address] [facility] [address] [place] [address] Giovanni Silva MD [address] [facility] [address] [place] [address] Social History Tobacco Use Types Packs/Day Years Used Date Smoking Tobacco: Never Assessed Comments Unknown Sex and Gender Information Value Date Recorded Sex Assigned at Not on file 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
--- OUTSIDE RECORDS SUMMARY | 2025-02-12 09:40 | XMS_ITS | CONTINUITY OF CARE DOCUMENT ---
Author Name may olvera Address Unknown Organization [facility] Address [address] [facility] [address] [place] [address] Phone [phone] Care Team Providers Care Batter Scaler Name Role Phone may olvera Unavailable Unavailable
--- OUTSIDE RECORDS SUMMARY | 2025-02-12 09:40 | XMS_ITS | Encounter Summary ---
Author Organization [facility] Address [address] [place] [address] Care Team Providers Care Microwave Radio Technician Name Role Phone Linda Stone MD Primary Care Provider [phone] Encounter Details Date Type Department Care Team (Late st Contact Info) Description 03/21/2009 Outpatient Historical [facility] [address] Giovanni Silva MD [address] [facility] [address] [place], [place] [id number] Routine General Medical Examination at a Health Care Facility Social History Tobacco Use Types Packs/Day Years Used Date Smoking Tobacco: Every Day Cigarettes Alcohol Use Standard Drinks/Week Comments Not Asked 0 (1 standard drink = 0.6 oz pur e alcohol) Comments No Sex and Gender Information Value Date Recorded Sex Assigned at Not on file 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
--- OUTSIDE RECORDS SUMMARY | 2025-02-12 09:40 | XMS_ITS | Encounter Summary ---
Author Organization [facility] Address [address] [place] [address] Care Team Providers Care Contour Path Tape Mill Operator Name Role Phone Linda Stone MD Primary Care Provider [phone] Encounter Details Date Type Department Care Team (Late st Contact Info) Description 03/20/2002 Outpatient Historical [facility] Primary Care - [facility] [address] [facility] [address] [place] [address] Brayden Muñoz Social History Tobacco Use Types Packs/Day Years Used Date Smoking Tobacco: Never Assessed Comments Unknown Sex and Gender Information Value Date Recorded Sex Assigned at Not on file 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
--- OUTSIDE RECORDS SUMMARY | 2025-02-12 09:40 | XMS_ITS | Encounter Summary ---
Author Organization [facility] Address [address] [place] [address] Care Team Providers Care Outcomes Analyst Name Role Phone Linda Stone MD Primary Care Provider [phone] Encounter Details Date Type Department Care Team (Late st Contact Info) Description 11/27/2007 Outpatient Historical [facility] Primary Care - [facility] [address] 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 [address] [place] [address] PCP - General Internal Medicine 04/02/11 documented as of this encounter
--- OUTSIDE RECORDS SUMMARY | 2025-02-12 09:40 | XMS_ITS | Encounter Summary ---
Author Organization [facility] Address [address] [place] [address] Care Team Providers Care Drug Room Operator Name Role Phone Linda Stone MD Primary Care Provider [phone] Encounter Details Date Type Department Care Team (Late st Contact Info) Description 04/18/2003 Outpatient Historical [facility] Primary Care - [facility] [address] [facility] [address] [place] [address] Brayden Muñoz Social History Tobacco Use Types Packs/Day Years Used Date Smoking Tobacco: Never Assessed Comments Unknown Sex and Gender Information Value Date Recorded Sex Assigned at Not on file 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
--- OUTSIDE RECORDS SUMMARY | 2025-02-12 09:40 | XMS_ITS | Encounter Summary ---
Author Organization [facility] Address [address] [place] [address] Care Team Providers Care Termite Helper Name Role Phone Linda Stone MD Primary Care Provider [phone] Encounter Details Date Type Department Care Team (Late st Contact Info) Description 05/31/2006 Outpatient Historical [facility] Primary Care - [address] [place] [address] Giovanni Silva MD [address] [facility] [address] [place] [address] Abnormal Loss of Weight (Primary Dx) Social History Tobacco Use Types Packs/Day Years Used Date Smoking Tobacco: Never Assessed Comments Unknown Sex and Gender Information Value Date Recorded Sex Assigned at Not on file 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 Gender Identity Not on file Sexual Orientation Not on file documented as of this encounter Plan of Treatment Not on file documented as of this encounter Procedures Procedure Name Priority Date/Time Associated Diagnosis Comments CBC WITH DIFFERENTIAL Routine 05/31/2006 8:42 PM CDT CBC WITH DIFFERENTIAL Routine 05/31/2006 8:42 PM CDT TSH Routine 05/31/2006 8:42 PM CDT AMYLASE Routine 05/31/2006 8:42 PM CDT documented in this encounter Results * (ABNORMAL) CBC WITH DIFFERENTIAL (05/31/2006 8:42 PM CDT) NEUTROPHILS 71(H) 45 - 70 % INTERFAC E SYSTEM LYMPHOCYTES 20 16 - 45 % INTERFAC E SYSTEM MONOCYTES 8 3 - 13 % INTERFACE SYSTEM EOSINOPHILS 0 0 - 7 % INTERFAC E SYSTEM BASOPHILS 0 0 - 2 % INTERFACE SYSTEM NEUTROPHIL ABSOLUTE 5.89 1.90 - 7.00 K/uL INTERFACE SYSTEM LYMPHOCYTE ABSOLUTE 1.67 0.70 - 4.50 K/uL INTERFACE SYSTEM MONOCYTE ABSOLUTE 0.68 0.10 - 1.30 K/uL INTERFACE SYSTEM EOSINOPHIL ABSOLUTE 0.03 0.00 - 0.70 K/uL INTERFACE SYSTEM BASOPHILS ABSOLUTE 0.02 0.00 - 0.20 K/uL INTERFACE SYSTEM 05/31/2006 8:42 PM CDT Giovanni Silva MD HEMATOLOGY ORDERABLES Final Resu lt Performing Organization Address [facility] de Phone Number INTERFACE SYSTEM Refer to clinic/hospital department * (ABNORMAL) CBC WITH DIFFERENTIAL (05/31/2006 8:42 PM CDT) Pathologist [facility] WBC 8.3 4.0 - 9.8 K/uL INTERFACE SYSTEM RBC 4.21 3.90 - 4.90 M/uL INTERFACE SYSTEM HEMOGLOBIN 14.7 11.8 - 14.8 g/dL INTERFACE SYSTEM HEMATOCRIT 43.0 35.5 - 44.0 % INTERFACE SYSTEM MCV 102.1(H) 82.0 - 99.0 fL INTERFACE SYSTEM MCH 34.9(H) 27.2 - 32.6 pg INTERFACE SYSTEM MCHC 34.2 31.5 - 35.5 % INTERFACE SYSTEM RDW 13.9 11.5 - 14.5 % INTERFACE SYSTEM RDW-STDEV 51.9(H) 37.1 - 48.7 fL INTERFACE SYSTEM PLATELETS 353(H) 140 - 350 K/uL INTERFACE SYSTEM MPV 9.7 9.3 - 12.4 fL INTERFACE SYSTEM 05/31/2006 8:42 PM CDT Giovanni Silva MD HEMATOLOGY ORDERABLES Final Resu lt Performing Organization Address [facility] Co de Phone Number INTERFACE SYSTEM Refer to clinic/hospital department * TSH (05/31/2006 8:42 PM CDT) TSH 2.20 0.27 - 4.20 uU/mL INTERFACE SYSTEM 05/31/2006 8:42 PM CDT us Giovanni Silva MD CHEMISTRY ORDERABLES Final Resul t Performing Organization Address [facility] de Phone Number INTERFACE SYSTEM Refer to clinic/hospital department * AMYLASE (05/31/2006 8:42 PM CDT) AMYLASE 71 28 - 100 U/L INTERFACE SYSTEM 05/31/2006 8:42 PM CDT us Giovanni Silva MD CHEMISTRY ORDERABLES Final Resul t Performing Organization Address [facility] Phone Number INTERFACE SYSTEM Refer to clinic/hospital department documented in this encounter Visit Diagnoses Diagnosis Loss of weight- Primary documented in this encounter Care Teams Termite Helper Relationship Specialty Start Date End Date Linda Stone MD [address] [place] [address] PCP - General Internal Medicine 04/02/11 documented as of this encounter
--- OUTSIDE RECORDS SUMMARY | 2025-02-12 09:40 | XMS_ITS | Encounter Summary ---
Author Organization [facility] Address [address] [place] [address] Care Team Providers Care Assembler Metal Building Name Role Phone Linda Stone MD Primary Care Provider [phone] Encounter Details Date Type Department Care Team (Late st Contact Info) Description 06/20/2006 Outpatient Historical [facility] Primary Care - [facility] [address] [facility] [address] [place] [address] Giovanni Silva MD [address] [facility] [address] [place], [place] [address] Unspecified Anemia (Primary Dx) Social History Tobacco Use Types Packs/Day Years Used Date Smoking Tobacco: Never Assessed Comments Unknown Sex and Gender Information Value Date Recorded Sex Assigned at Not on file 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
--- OUTSIDE RECORDS SUMMARY | 2025-02-12 09:40 | XMS_ITS | Encounter Summary ---
Author Organization [facility] Address [address] [place] [address] Care Team Providers Care Garment Finisher Name Role Phone Linad Stone MD Primary Care Provider [phone] Encounter Details Date Type Department Care Team (Late st Contact Info) Description 05/17/2006 Orders Only [facility] Primary Care - [address] [place] [address] Giovanni Silva MD [address] [facility] [address] [place] [address] Social History Tobacco Use Types Packs/Day Years Used Date Smoking Tobacco: Never Assessed Comments Unknown Sex and Gender Information Value Date Recorded Sex Assigned at Not on file 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 LAST VISIT: 03-10-05 PCP: rebecca. ALTERNATIVE PHONE NUMBER: [phone] cell [phone] WHO CALLED: Patient called. CURRENT ALLERGY LIST: NO KNOWN ALLERGIES PHARMACY NUMBER: [phone] PROBLEMS: URINATION: Patient complains of frequent urination, painful urination. The symptoms began approximately 3 days ago. pt. c/o a burning sensation when urinating, and pressure pt. denies fever SECTION 1: REQUESTED ACTION kitjeana 05/17/06 at 10:58 am: MEDICATION REQUEST: Patient wants medication or an appointment./angelica DOCTOR`S RESPONSE: lewis 05/17/06 at 11:16 am MEDICATIONS: Call in to Pharmacy BACTRIM DS ORAL TABLET [id number] MG, 1 Two Times A Day, 6 Dispensed, status: NEW PRESCRIPTION, 05/17/2006. FINAL ACTION: jerome 05/17/06 at 11:39 am Spoke with patient 05/17/06 at 11:39 am. Called pharmacy at 05/17/06 at 11:39 am. / celso Electronically Signed by: Celso Beard on Wednesday, May 17, 2006 documented in this encounter Plan of Treatment Not on file documented as of this encounter Visit Diagnoses Not on filedocumented in this encounter Care Teams Garment Finisher Relationship Specialty Start Date End Date Linda Stone MD [address] [place] [address] PCP - General Internal Medicine 04/02/11 documented as of this encounter
--- OUTSIDE RECORDS SUMMARY | 2025-02-12 09:40 | XMS_ITS | Encounter Summary ---
Author Organization [facility] Address 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 LAST VISIT: 09/2006 PCP: yin WHO CALLED: Pharmacy called. CURRENT ALLERGY LIST: NO KNOWN ALLERGIES PHARMACY NUMBER: [phone] SECTION 1: REQUESTED ACTION joana 10/19/07 at 01:59 pm: MEDICATION REQUEST: MEDICATION REQUEST: Patient requests a refill. MEDICATIONS: CYMBALTA ORAL CAPSULE ENTERIC COATED 60 MG, 1 tab po qday, 90 Dispensed, 3 Fills, status: CONTINUED, 2006. FOLBIC ORAL TABLET 2.5-25-2 MG, 1 tab po qday, 90 Dispensed, 3 Fills, status: NEW PRESCRIPTION, 2006. 07/05/07 RN/TELEGRAPH REPEATER TECHNICIAN RESPONSE: [email or web address] 10/19/07 at 04:35 pm Refill this time only, no additional. for 30 tabs onlyon each script pt needs appt FINAL ACTION: gomez 10/19/07 at 04:56 pm Called pharmacy at 10/19/07 at 04:56 pm. SAS Electronically Signed by: Sadia Tinsley on October documented in this encounter Plan of Treatment Not on file documented as of this encounter Visit Diagnoses Not on filedocumented in this encounter Care Teams Lock Setter Relationship Specialty Start Date End Date Linda Stone MD [address] [facility] [address] [place] [id number] PCP - General Internal Medicine 04/02/11 documented as of this encounter
--- OUTSIDE RECORDS SUMMARY | 2025-02-12 09:40 | XMS_ITS | Encounter Summary ---
Author Organization [facility] Address [address] [place] [address] Care Team Providers Care Can Cutter Name Role Phone Linda Stone MD Primary Care Provider [phone] Encounter Details Date Type Department Care Team (Latest Contact Info) Description 04/19/2006 Outpatient Historical [facility] Rg Morel MD [address] [facility] [place] [address] Grand Mal, not Intractabl ([facility]) (Primary Dx) Social History Tobacco Use Types Packs/Day Years Used Date Smoking Tobacco: Never Assessed Comments Unknown Sex and Gender Information Value Date Recorded Sex Assigned at Not on file Legal Sex Female 5:[address] Gender Identity Not on file Sexual Orientation Not on file documented as of this encounter Plan of Treatment Not on file documented as of this encounter Visit Diagnoses Diagnosis Generalized convulsive epilepsy without mention of intractable epilepsy ([facility])- Primary Generalized convulsive epilepsy without mention of intractable epilepsy documented in this encounter Care Teams Can Cutter Relationship Specialty Start Date End Date Linda Stone MD [address] [place] [address] PCP - General Internal Medicine 04/02/11 documented as of this encounter
--- OUTSIDE RECORDS SUMMARY | 2025-02-12 09:40 | XMS_ITS | Encounter Summary ---
Author Organization [facility] Address [address] [place] [address] Care Team Providers Care Career Education Teacher Name Role Phone Linda Stone MD Primary Care Provider [phone] Encounter Details Date Type Department Care Team (Late st Contact Info) Description 06/27/2006 Outpatient Historical [facility] Primary Care - 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
[2025-02-12 09:59] LABS: Basophils Percent Auto 0.5 % (0.2-1.2); Eosinophils Absolute Auto 0.1 K/mm3 (0-0.3); Eosinophils Percent Auto 1.2 % (0-4.4); Hematocrit 48.5 % (37.0-47.0); Hemoglobin 16.3 g/dL (12.0-15.0); Immature Granulocyte Absolute 0.03 K/mm3 (0.00-0.031); Immature Granulocyte Percent A 0.4 % (0-0.5); Lymphocytes Absolute Auto 2.06 K/mm3 (0.9-3.2); Lymphocytes Percent Auto 24.2 % (18.3-44.2); Mean Corpuscular HGB Conc 33.6 g/dl (32-36); Mean Corpuscular Hemoglobin 33.9 pg (26-34); Mean Corpuscular Volume 100.8 fl (80-100); Monocytes Absolute Auto 0.7 K/mm3 (0.1-0.6); Monocytes Percent Auto 8.3 % (2.6-8.5); Neutrophils Absolute Auto 5.6 K/mm3 (1.3-6.7); Neutrophils Percent Auto 65.4 % (45.5-73.1); Platelet Count Result 340 k/mm3 (150-375); Red Blood Count 4.81 M/mm3 (4.2-5.4); Red Cell Distribution Width 13.3 % (11.5-14.5); White Blood Count 8.5 K/mm3 (4.5-10.0)
[2025-02-12 10:35] LABS: Vitamin D 25 Hydroxy 69.6 ng/mL
[2025-02-12 11:10] LABS: Alanine Aminotransferase 25 U/L (6-35); Albumin Level 4.5 g/dL (3.5-5.1); Alkaline Phosphatase 73 U/L (38-126); Anion Gap 6 mmol/L (4-12); Aspartate Amino Transferase 40 U/L (14-36); Bilirubin,Total 0.7 mg/dL (0.2-1.3); Blood Urea Nitrogen 6 mg/dL (7-17); Calcium 9.6 mg/dL (8.4-10.2); Carbon Dioxide 29 mmol/L (22-30); Chloride 102 mmol/L (98-107); Cholesterol 234 mg/dL (0-200); Estimated Glomerular Filt Rate > 60; Glucose 97 mg/dL (65-110); Potassium 4.3 mmol/L (3.4-5.0); Sodium 137 mmol/L (137-145); Total Protein 7.3 g/dL (6.3-8.2); Triglycerides 66 mg/dL (<150)
[2025-02-12 11:21] LABS: LDL Cholesterol Direct 88 mg/dL
[2025-02-12 11:39] LABS: HDL Direct 117 mg/dL
== END 2025-02-12 09:23 | disposition home or self-care (01) ==
LOC: ANHLAB 09:23
PROVIDERS: PCP Nurse Practitioner Family; Visit Provider Nurse Practitioner Family
DX: M81.0 Age-related osteoporosis without current pathological fracture (principal); I10 Essential (primary) hypertension; E55.9 Vitamin D deficiency, unspecified; G47.00 Insomnia, unspecified
CPT/HCPCS: 36415; 80053; 80061; 82306; 85025

== ENCOUNTER 2025-08-24 08:05 | Outpatient (CLI) | payer OTHER, SELFPAY ==
[2025-08-24 08:42] LABS: Hematocrit 46.5 % (37.0-47.0); Hemoglobin 15.8 g/dL (12.0-15.0); Immature Granulocyte Percent A 0.3 % (0-0.5); Lymphocytes Absolute Auto 1.93 K/mm3 (0.9-3.2); Mean Corpuscular HGB Conc 34.0 g/dl (32-36); Mean Corpuscular Hemoglobin 34.2 pg (26-34); Mean Corpuscular Volume 100.6 fl (80-100); Nucleated Red Blood Cells Absolute Auto 0.000 K/mm3 (0.0-0.012); Nucleated Red Blood Cells Perc 0.0 % (0.0-0.2); Platelet Count Result 349 k/mm3 (150-375); Red Blood Count 4.62 M/mm3 (4.2-5.4); White Blood Count 6.5 K/mm3 (4.5-10.0)
[2025-08-24 08:53] LABS: Alanine Aminotransferase 27 U/L (6-35); Albumin Level 4.6 g/dL (3.5-5.1); Alkaline Phosphatase 73 U/L (38-126); Anion Gap 5 mmol/L (4-12); Aspartate Amino Transferase 46 U/L (14-36); Bilirubin,Total 0.7 mg/dL (0.2-1.3); Blood Urea Nitrogen 8 mg/dL (7-17); Calcium 9.7 mg/dL (8.4-10.2); Carbon Dioxide 26 mmol/L (22-30); Chloride 104 mmol/L (98-107); Estimated Glomerular Filt Rate > 60; Glucose 86 mg/dL (65-110); Potassium 4.5 mmol/L (3.4-5.0); Sodium 135 mmol/L (137-145); Total Protein 7.7 g/dL (6.3-8.2)
[2025-08-24 08:56] LABS: Iron 127 ug/dL (37-170)
[2025-08-24 09:05] LABS: Percent Iron Saturation 47 % (20-50)
[2025-08-24 09:37] LABS: Ferritin 131.00 ng/mL (11.1-264)
[2025-08-24 10:04] LABS: Vitamin B12 469.0 pg/mL (239-931)
== END 2025-08-24 08:06 | disposition home or self-care (01) ==
LOC: ANHLAB 08:05
PROVIDERS: PCP Nurse Practitioner Family; Visit Provider Nurse Practitioner Family
DX: D75.1 Secondary polycythemia (principal); F41.9 Anxiety disorder, unspecified; I10 Essential (primary) hypertension; E78.5 Hyperlipidemia, unspecified; M81.0 Age-related osteoporosis without current pathological fracture
CPT/HCPCS: 36415; 80053; 82607; 82668; 82728; 82746; 83540; 83550; 85025